=== PATIENT | male | born 2000 | race Caucasian/White ===

== ENCOUNTER 2023-01-11 15:40 | Inpatient (IN) ==
[2023-01-11] MEDS ORDERED: ZOFRAN INJ 4 MG VIAL IVP ONE (15:58)
[2023-01-11] MEDS ORDERED: NS 1,000 ML IV 1,000 ML IV ONE ×2 (15:58→18:58)
[2023-01-11] MEDS ORDERED: ZOFRAN INJ 4 MG VIAL ONE (15:59)
[2023-01-11] MEDS ORDERED: NS 1,000 ML IV 1,000 ML ONE ×3 (15:59→20:03)
[2023-01-11 16:55] LABS: SERUM ACETONE SMALL (NEGATIVE)
[2023-01-11] MEDS ORDERED: TORADOL 30 MG VIAL ONE (17:03)
[2023-01-11] MEDS ORDERED: TORADOL 30 MG VIAL IVP ONE (17:03)
[2023-01-11 17:07] LABS: ALANINE AMINOTRANSFERASE 334 Units/L (12-78); ASPARTATE AMINO TRANSFERASE 43 Units/L (15-37); BLOOD UREA NITROGEN 12 mg/dL (7-18); CALCIUM 9.3 mg/dL (8.5-10.1); CARBON DIOXIDE 18.2 mmol/L (21-32); CHLORIDE 94 mmol/L (98-107); COR NA(FOR HYPERGLY) 137 mmol/L (136-145); CREATININE 1.31 mg/dL (0.70-1.30); GLUCOSE 278 mg/dL (65-99); POTASSIUM 4.2 mmol/L (3.5-5.1); SODIUM 133 mmol/L (136-145); eGFR NON BLACK RACES > 60 (>60)
[2023-01-11 17:08] LABS: ALBUMIN 3.2 g/dL (3.4-5.0); ALKALINE PHOSPHATASE 364 Units/L (46-116); COR CA(FOR HYPOALB) 9.9 mg/dL (8.5-10.1); TOTAL PROTEIN 8.1 g/dL (6.4-8.2)
[2023-01-11 17:12] LABS: BASOPHILS % (AUTO) 0.3 % (0.2-1.0); EOSINOPHILS % (AUTO) 0.2 % (0.9-2.9); HEMATOCRIT 44.5 % (42.0-54.0); HEMOGLOBIN 15.5 g/dL (13.5-18.0); LYMPHOCYTES # (AUTO) 1.3 X10^3/uL (1.3-2.9); MEAN CORPUSCULAR HEMOGLOBIN 29.8 pg (27.0-34.0); MEAN CORPUSCULAR HGB CONC 34.8 g/dL (33.0-35.0); MEAN CORPUSCULAR VOLUME 85.7 fL (80.0-100.0); MEAN PLATELET VOLUME 8.6 fL (7.4-11.0); MONOCYTES # (AUTO) 1.1 x10^3/uL (0.3-0.8); MONOCYTES % (AUTO) 9.5 % (0.0-13.0); NEUTROPHILS # (AUTO) 9.2 x10^3/uL (2.2-4.8); PLATELET COUNT 320 X10^3/uL (150.0-450.0); WHITE BLOOD COUNT 11.7 X10^3/uL (3.6-10.0)
[2023-01-11] MEDS ORDERED: OMNIPAQUE 350 mg/mL 100 mL BTL 100 ML ONE (17:20)
[2023-01-11] MEDS ORDERED: NS 100 ML IV 100 ML ONE (17:21)
--- NOTE | 2023-01-11 17:40 | DR.N/VMALE ---
HPI Time Seen Time Seen by Provider: 01/11/23 17:18 Primary Care Physician Primary Care Physician: RADHA HPI Comment HPI Comment: According to pt he began experiencing left upper abdominal pain 4 days ago got better vomited x1 .However today patient noticed pain returned and has persisted Here to have it checked.Has vomited x2 today bringing up food eaten .Not eaten anything unuusal or different .No one at home with similar symptoms Complaints Chief Complaint Doctors Comments: left abdominal pain Chief Complaint:: PT C/O OF LUQ PAIN THAT STARTED FRIDAY AND GOT WORSE THIS MORNING WHEN HE WOKE UP AROUND 0800 ALONG WITH VOMITING THAT STARTED AROUND 10 PT STATES HE TOOK SOME TYLENOL AROUND 11 AND IT EASED THEN PAIN OFF AND THEN ABOUT 45 MIN AGO HE STARTED BACK WITH THE PAIN AND VOMITING. Self Treatment fo Chief Complaint: TYLENOL @ 10 COVID-19 Coronavirus risk:travel/contact w/high risk person: No Has patient experienced Coronavirus symptoms: No Reviewed Nurses Notes Reviewed: Yes Source History Provided: Patient Mode of Arrival Mode of Arrival: Ambulatory Timing Onset of Chief Complaint: 01/08/23 Context Onset: Spontaneous History of: Diabetes Quality Quality: Bilious and Food Particles PMH PMH Past Medical History: Yes Past Medical History: Diabetes Past Surgical History: Yes Surgical History: Tonsillectomy Family History History of Family Medical Conditions: No Social History Does patient currently use any type of tobacco product: No Have you used tobacco products in the last 12 months: No Type of Tobacco Use: None Does any household member use tobacco: No Alcohol Use: None Do you use any recreational Drugs:: No Lives With: Family Lives Where: Home Travel Risk Coronavirus risk:travel/contact w/high risk person: No Has patient experienced Coronavirus symptoms: No Infectious screening In the last 2 months have you had wt loss of >10#?: NO Have you had fever, night sweats or hemotysis?: No Have you traveled outside the country in the last 6 months?: No Isolation: Standard ROS Review of Systems Constitutional: No Symptoms Reported Eyes: No Symptoms Reported ENTM: No Symptoms Reported Respiratoy: No Symptoms Reported Cardiovascular: No Symptoms Reported Gastrointestinal/Abdominal: See HPI Genitourinary: No Symptoms Reported Neurological: No Symptoms Reported Musculoskeletal: No Symptoms Reported Integumentary: No Symptoms Reported Hematologic/Lymphatic: No Symptoms Reported Endocrine: No Symptoms Reported Psychiatric: No Symptoms Reported PE Vital Signs Vitals: Vital Signs Temperature 98.4 F Pulse Rate 126 Respiratory Rate 20 Respiratory Rate 20 Respiratory Rate 22 Blood Pressure 140/89 O2 Sat by Pulse Oximetry 97 General Limitations: No Limitations General Appearance: Alert, Anxious and In Distress Head Head Exam: Normal Inspection, Atraumatic and Normocephalic Eyes Eye exam: Normal Appearance, PERRL and EOMI ENT ENT Exam: Mucous Membranes Dry Neck Neck Exam: Normal Inspection and Full ROM Chest Chest Inspection: Normal Inspection and Symmetric Chest Wall Rise Respiratory Respiratory Exam: Normal Lung Sounds Bilat Respiratory Exam: Bilateral: Clear to Auscultation Cardiovascular Cardiovascular Exam: +S1 and +S2 Abdominal Exam Abdominal Exam: Normal Bowel Sounds, Soft and Tenderness Abdominal Tenderness: LUQ Extremities Extremities Exam: Normal Inspection and Full ROM Neurologic Neurological Exam: Alert and Oriented X3 Psychiatric Psychiatric Exam: Normal Affect Skin Skin Exam: Normal Color MDM Differential Diagnosis Differential Diagnosis: Considerations may Include:: Bowel Obstruction, Diabetes/DKA, Gastritis, Gastroenteritis and Pancreatitis COURSE Treatment Treatment: labs,fluid cT of abdomen and pelvis with contrast ,IV toradol Reevaluation 1st: Improved ROR Labs Reviewed Result Diagrams: 01/11/23 16:07 01/11/23 16:07 Laboratory: WBC 11.7 X10^3/uL (3.6-10.0) H 01/11/23 16:07 RBC 5.20 X10^6/uL (4.7-6.0) 01/11/23 16:07 Hgb 15.5 g/dL (13.5-18.0) 01/11/23 16:07 Hct 44.5 % (42.0-54.0) 01/11/23 16:07 MCV 85.7 fL (80.0-100.0) 01/11/23 16:07 MCH 29.8 pg (27.0-34.0) 01/11/23 16:07 MCHC 34.8 g/dL (33.0-35.0) 01/11/23 16:07 RDW 14.0 % (11.6-16.5) 01/11/23 16:07 Plt Count 320 X10^3/uL (150.0-450.0) 01/11/23 16:07 MPV 8.6 fL (7.4-11.0) 01/11/23 16:07 Neut % (Auto) 79.0 % (42.0-75.0) H 01/11/23 16:07 Lymph % (Auto) 11.0 % (21.0-51.0) L 01/11/23 16:07 [place] % (Auto) 9.5 % (0.0-13.0) 01/11/23 16:07 Eos % (Auto) 0.2 % (0.9-2.9) L 01/11/23 16:07 Baso % (Auto) 0.3 % (0.2-1.0) 01/11/23 16:07 Neut # (Auto) 9.2 x10^3/uL (2.2-4.8) H 01/11/23 16:07 Lymph # (Auto) 1.3 X10^3/uL (1.3-2.9) 01/11/23 16:07 [place] # (Auto) 1.1 x10^3/uL (0.3-0.8) H 01/11/23 16:07 Eos # (Auto) 0.0 x10^3/uL (0.0-0.2) 01/11/23 16:07 Baso # (Auto) 0.0 X10^3/uL (0.0-0.1) 01/11/23 16:07 Absolute Nucleated RBC 0.0 /100WBC 01/11/23 16:07 Sodium 133 mmol/L (136-145) L 01/11/23 16:07 Corrected Sodium 137 mmol/L (136-145) 01/11/23 16:07 Potassium 4.2 mmol/L (3.5-5.1) 01/11/23 16:07 Chloride 94 mmol/L (98-107) L 01/11/23 16:07 Carbon Dioxide 18.2 mmol/L (21-32) L 01/11/23 16:07 BUN 12 mg/dL (7-18) 01/11/23 16:07 Creatinine 1.31 mg/dL (0.70-1.30) H 01/11/23 16:07 Est GFR (MDRD) Af Amer > 60 (>60) 01/11/23 16:07 Est GFR (MDRD) Non-Af > 60 (>60) 01/11/23 16:07 Glucose 278 mg/dL (65-99) H 01/11/23 16:07 POC Glucose (mg/dL) 208 mg/dL (65-99) H 01/11/23 19:47 Hemoglobin A1c 12.4 % 01/11/23 16:07 Calcium 9.3 mg/dL (8.5-10.1) 01/11/23 16:07 Corrected Calcium 9.9 mg/dL (8.5-10.1) 01/11/23 16:07 Total Bilirubin 0.60 mg/dL (0.2-1.0) 01/11/23 16:07 AST 43 Units/L (15-37) H 01/11/23 16:07 ALT 334 Units/L (12-78) H 01/11/23 16:07 Alkaline Phosphatase 364 Units/L (46-116) H 01/11/23 16:07 Total Protein 8.1 g/dL (6.4-8.2) 01/11/23 16:07 Albumin 3.2 g/dL (3.4-5.0) L 01/11/23 16:07 Globulin 4.9 g/dL (2.5-4.5) H 01/11/23 16:07 Albumin/Globulin Ratio 0.7 Ratio (1.1-2.1) L 01/11/23 16:07 Lipase 2250 Units/L (73-393) H 01/11/23 16:07 Specimen Type Clean catch urine 01/11/23 18:51 Urine Color Dark yellow (YELLOW) 01/11/23 18:51 Urine Appearance Clear (CLEAR) 01/11/23 18:51 Urine pH 5.0 (5.0 - 8.0) 01/11/23 18:51 Ur Specific [place] 1.010 (1.000-1.030) 01/11/23 18:51 Urine Protein 3+ (NEGATIVE) 01/11/23 18:51 Urine Glucose (UA) 4+ (NEGATIVE) 01/11/23 18:51 Urine Ketones 4+ (NEGATIVE) 01/11/23 18:51 Urine Blood 1+ (NEGATIVE) 01/11/23 18:51 Urine Nitrite Negative (NEGATIVE) 01/11/23 18:51 Urine Bilirubin 1+ (NEGATIVE) 01/11/23 18:51 Urine Urobilinogen 1+ (NORMAL) 01/11/23 18:51 Ur Leukocyte Esterase Negative (NEGATIVE) 01/11/23 18:51 Urine RBC 0-2 /HPF (0-3) 01/11/23 18:51 Urine WBC 0-2 /HPF (0-5) 01/11/23 18:51 Ur Squamous Epith Cells Rare /HPF (NEGATIVE) 01/11/23 18:51 Urine Bacteria Trace /HPF (NEGATIVE) 01/11/23 18:51 Urine Mucus Rare /HPF (NEGATIVE) 01/11/23 18:51 Ur Culture Indicated? No/not indicated 01/11/23 18:51 Acetone, Semi-Quant Small (NEGATIVE) H 01/11/23 16:07 Opioid Opioid Risk Tool Age (Henrry box if 16-45): No History of Preadolescent Sexual Abuse: No Total: 0 Total Score Risk Category: Low Risk Copyright: Cas CANALES predicting aberrant behaviors Discharge Plan Diagnosis Discharge Problem: Acute pancreatitis, DKA, type 1, Abnormal LFTs Discharge Plan Patient Disposition: ADMITTED INPATIENT Condition: Stable Orders to Discharge Patient Discharge Orders: Transfer (Routine); Ordered 01/11/23 Ordered By: Silvino Pinto ADDITIONAL NOTES Additional Notes Additional Notes: acute pancreatitis with abnormal LFT ,serum acetone pos with blood sugar over 200.Spke with Dr Sin .agreed to admit
[2023-01-11 18:08] LABS: HEMOGLOBIN A1C 12.4 %
--- NOTE | 2023-01-11 18:08 | CT ---
HISTORYLUQ ABD PAINSSTUDYABDOMEN/PELVIS WITH CONCOMPARISONNone.TECHNIQUESerial axial images were obtained of the abdomen and pelvis from the lung bases through the pubic symphysis after the administration of oral and intravenous contrast. Dose reduction techniques were utilized.FINDINGSThe heart is not enlarged. The lung bases are clear.The liver is not enlarged. There is no intrahepatic mass. There is no intra or extra-hepatic biliary tree dilatation. There are no calcified gallstones or gallbladder wall thickening.There are peripancreatic inflammatory changes and significant edema surrounding and involving the pancreatic tail and distal body of the pancreas. The pancreas is heterogeneous and swollen involving distal and tail the pancreas. There is edema throughout the adjacent mesenteric fat. There is fluid layering within the superior left paracolic gutter.The spleen is not enlarged. There is no splenic mass. The adrenal glands are not enlarged. There is no adrenal mass.No solid or complex cystic renal mass identified. There are no renal calculi. There is no evidence of hydronephrosis or obstructive uropathy. The urinary bladder is midline.The aorta and IVC appear intact. No periaortic mass or lymphadenopathy is identified.The appendix is normal. Very minimal shotty right lower quadrant and mesenteric lymphadenopathy is seen. There is no evidence of bowel obstruction, free air or abscess. No pelvic sidewall mass identified. There are pelvic phleboliths. There is a very small umbilical hernia with only herniation of omental fat through the defect.The osseous structures are intact.IMPRESSIONAcute pancreatitis predominately involving the distal body of the pancreas and tail.Electronically signed by: Dania Hanson (Jan 11, 2023 18:06:58)
[2023-01-11 19:05] LABS: APPEARANCE,URINE CLEAR (CLEAR); PROTEIN,URINE 3+ (NEGATIVE)
[2023-01-11 19:06] LABS: BACTERIA,URINE TRACE /HPF (NEGATIVE); BILIRUBIN,URINE 1+ (NEGATIVE); BLOOD/HEMOGLOBIN,URINE 1+ (NEGATIVE); COLOR,URINE DARK YELLOW (YELLOW); GLUCOSE, URINE 4+ (NEGATIVE); KETONES,URINE 4+ (NEGATIVE); LEUKOCYTE ESTERASE ,URINE NEGATIVE (NEGATIVE); NITRITES,URINE NEGATIVE (NEGATIVE); RBC,URINE 0-2 /HPF (0-3); SQUAMOUS EPITHELIAL CELL,UR RARE /HPF (NEGATIVE); UROBILINOGEN,URINE 1+ (NORMAL)
[2023-01-11] MEDS ORDERED: MYXREDLIN 100 UNIT/100 ML BAG 100 UNIT/100 ML PLAST..BAG IV PRN (20:01)
[2023-01-11] MEDS ORDERED: MYXREDLIN 100 UNIT/100 ML BAG 100 UNIT/100 ML PLAST..BAG IV ONE (20:03)
[2023-01-11] MEDS: NS 1,000 ML IV 1,000 ML IV SCH (20:08)
[2023-01-11 21:49] LABS: ABG BASE EXCESS -6.2 mmol/L (-2.0-2.0)
[2023-01-11 21:50] LABS: ABG ALLEN TEST POS; ABG HCO3 17.6 mmol/L (22-26)
[2023-01-11 22:05] VITALS: BMI 28.0
[2023-01-11 22:29] LABS: BLOOD UREA NITROGEN 10 mg/dL (7-18); CALCIUM 8.4 mg/dL (8.5-10.1); CARBON DIOXIDE 21.9 mmol/L (21-32); CHLORIDE 100 mmol/L (98-107); COR NA(FOR HYPERGLY) 138 mmol/L (136-145); CREATININE 1.14 mg/dL (0.70-1.30); GLUCOSE 168 mg/dL (65-99); POTASSIUM 3.4 mmol/L (3.5-5.1); SODIUM 136 mmol/L (136-145); eGFR NON BLACK RACES > 60 (>60)
[2023-01-12] MEDS: NORCO 5/325 MG TAB PO PRN ×2 (01:11→20:05)
[2023-01-12 02:06] LABS: BLOOD UREA NITROGEN 9 mg/dL (7-18); CALCIUM 8.2 mg/dL (8.5-10.1); CARBON DIOXIDE 21.6 mmol/L (21-32); CHLORIDE 102 mmol/L (98-107); COR NA(FOR HYPERGLY) 138 mmol/L (136-145); GLUCOSE 119 mg/dL (65-99); POTASSIUM 3.4 mmol/L (3.5-5.1); SODIUM 138 mmol/L (136-145); eGFR NON BLACK RACES > 60 (>60)
[2023-01-12] MEDS: NS 1,000 ML IV 1,000 ML IV SCH ×4 (03:08→20:05)
[2023-01-12 05:50] LABS: ALANINE AMINOTRANSFERASE 197 Units/L (12-78); ALBUMIN 2.2 g/dL (3.4-5.0); ALKALINE PHOSPHATASE 245 Units/L (46-116); AMYLASE 169 Units/L (25-115); ASPARTATE AMINO TRANSFERASE 23 Units/L (15-37); BLOOD UREA NITROGEN 8 mg/dL (7-18); CARBON DIOXIDE 23.6 mmol/L (21-32); CHLORIDE 104 mmol/L (98-107); COR CA(FOR HYPOALB) 9.4 mg/dL (8.5-10.1); COR NA(FOR HYPERGLY) 139 mmol/L (136-145); CREATININE 0.97 mg/dL (0.70-1.30); GLUCOSE 117 mg/dL (65-99); POTASSIUM 3.5 mmol/L (3.5-5.1); SODIUM 139 mmol/L (136-145); TOTAL PROTEIN 5.9 g/dL (6.4-8.2); eGFR NON BLACK RACES > 60 (>60)
[2023-01-12 05:52] LABS: LIPASE 1516 Units/L (73-393)
[2023-01-12 05:58] LABS: BASOPHILS % (AUTO) 0.2 % (0.2-1.0); EOSINOPHILS # (AUTO) 0.1 x10^3/uL (0.0-0.2); EOSINOPHILS % (AUTO) 0.9 % (0.9-2.9); HEMATOCRIT 37.2 % (42.0-54.0); LYMPHOCYTES # (AUTO) 1.7 X10^3/uL (1.3-2.9); LYMPHOCYTES % (AUTO) 19.7 % (21.0-51.0); MEAN CORPUSCULAR HEMOGLOBIN 29.8 pg (27.0-34.0); MEAN CORPUSCULAR HGB CONC 34.5 g/dL (33.0-35.0); MEAN CORPUSCULAR VOLUME 86.4 fL (80.0-100.0); MEAN PLATELET VOLUME 8.5 fL (7.4-11.0); MONOCYTES # (AUTO) 1.2 x10^3/uL (0.3-0.8); MONOCYTES % (AUTO) 13.9 % (0.0-13.0); NEUTROPHILS # (AUTO) 5.6 x10^3/uL (2.2-4.8); NEUTROPHILS % (AUTO) 65.3 % (42.0-75.0); PLATELET COUNT 243 X10^3/uL (150.0-450.0); WHITE BLOOD COUNT 8.5 X10^3/uL (3.6-10.0)
[2023-01-12 06:04] LABS: HEMOGLOBIN 12.8 g/dL (13.5-18.0)
[2023-01-12 06:28] LABS: SERUM ACETONE SMALL (NEGATIVE)
[2023-01-12] MEDS ORDERED: CONSULT PHARMACY - POTASSIUM & MAGNESIUM XX SCH (07:00)
[2023-01-12] MEDS ORDERED: K-RIDER 10 MEQ/NS 100 ML 10 MEQ/100 ML BAG IV SCH (08:00)
[2023-01-12 10:30] LABS: BLOOD UREA NITROGEN 7 mg/dL (7-18); CALCIUM 8.2 mg/dL (8.5-10.1); CARBON DIOXIDE 24.9 mmol/L (21-32); CHLORIDE 102 mmol/L (98-107); COR NA(FOR HYPERGLY) 140 mmol/L (136-145); CREATININE 0.89 mg/dL (0.70-1.30); GLUCOSE 229 mg/dL (65-99); POTASSIUM 4.3 mmol/L (3.5-5.1); SODIUM 137 mmol/L (136-145); eGFR NON BLACK RACES > 60 (>60)
[2023-01-12] MEDS ORDERED: BASAGLAR 20 UNIT SQ ONE (11:59)
[2023-01-12] MEDS ORDERED: ZOFRAN INJ 4 MG VIAL IVP PRN (12:04)
[2023-01-12] MEDS ORDERED: ZOFRAN INJ 4 MG VIAL ONE (12:11)
[2023-01-12] MEDS: MORPHINE SULFATE INJ 2 MG INJ IVP PRN ×2 (12:22→16:51)
[2023-01-12] MEDS: NovoLIN R (or HumuLIN R) SUBCUT PRN (12:30)
[2023-01-12] MEDS ORDERED: BASAGLAR 20 UNIT SUBCUT ONE ×2 (14:00→21:00)
--- NOTE | 2023-01-12 15:59 | DR.H&P ---
H&P History & Physical for Day of: H&P Date: 01/12/23 Chief Complaint Chief Complaint: Left upper quadrant pain with nausea and vomiting. Allergies Allergies Allergy/AdvReac Type Severity Reaction Status Date / Time No Known Allergies Allergy Verified 01/11/23 21:38 History of Present Illness History of Present Illness: This is a pleasant 22-year-old white male who is a patient of Dr. Cruz. Approximately 5 days ago he developed left upper quadrant pain and he took Tylenol which helped relieve it. He developed nausea and vomiting yesterday especially after eating. The pain became worse so he came to the [facility] emergency department and they found that he had pancreatitis. His lipase 2250. The emergency department also marium a hemoglobin A1c that showed it was 12.4%. Work-up also revealed that he had a small amount acetone in the blood because of that we would have to put him in the ICU and started him on insulin drip per protocol. We kept him n.p.o. and managed his pain and started him on IV fluid. This morning he was feeling better his lipase is come down to around 1500 and he is off insulin drip now. He reports no previous history of pancreatitis however he does drink some alcohol but not all that much she reports. He does however have a positive family history for pancreatitis and his aunt and grandparent. Past Medical History Past Medical History: Diabetes (Type 1 diabetes mellitus) Past Surgical History Surgical History: Tonsillectomy Family History Family Medical History: Diabetes Mellitus, [place], Heart Failure and Hypertension Social History Does patient currently use any type of tobacco product: No Have you used tobacco products in the last 12 months: Yes (Quit 2 months ago) Type of Tobacco Use: None Does any household member use tobacco: No Alcohol Use: None Drug Use: None Medications Home Medications: Home Medications Medication Instructions Recorded Confirmed Type insulin aspart U-100 100 unit/mL 100 unit subcut DIRECTED 01/11/23 01/11/23 History (3 mL) subcutaneous pen (Novolog FlexPen U-100 Insulin aspart) insulin syringe-needle U-100 1/2 01/11/23 01/11/23 History mL 31 gauge x 15/64" (BD Veo Insulin Syringe Ultra-Fine) pen needle, diabetic 31 gauge x 01/11/23 01/11/23 History 5/16" (BD Ultra-Fine Short Pen Needle) Labs Result Diagrams: 01/12/23 05:20 01/12/23 09:50 Labs: Laboratory WBC 8.5 X10^3/uL (3.6-10.0) 01/12/23 05:20 RBC 4.30 X10^6/uL (4.7-6.0) L 01/12/23 05:20 Hgb 12.8 g/dL (13.5-18.0) L D 01/12/23 05:20 Hct 37.2 % (42.0-54.0) L 01/12/23 05:20 MCV 86.4 fL (80.0-100.0) 01/12/23 05:20 MCH 29.8 pg (27.0-34.0) 01/12/23 05:20 MCHC 34.5 g/dL (33.0-35.0) 01/12/23 05:20 RDW 14.0 % (11.6-16.5) 01/12/23 05:20 Plt Count 243 X10^3/uL (150.0-450.0) 01/12/23 05:20 MPV 8.5 fL (7.4-11.0) 01/12/23 05:20 Neut % (Auto) 65.3 % (42.0-75.0) 01/12/23 05:20 Lymph % (Auto) 19.7 % (21.0-51.0) L 01/12/23 05:20 [place] % (Auto) 13.9 % (0.0-13.0) H 01/12/23 05:20 Eos % (Auto) 0.9 % (0.9-2.9) 01/12/23 05:20 Baso % (Auto) 0.2 % (0.2-1.0) 01/12/23 05:20 Neut # (Auto) 5.6 x10^3/uL (2.2-4.8) H 01/12/23 05:20 Lymph # (Auto) 1.7 X10^3/uL (1.3-2.9) 01/12/23 05:20 [place] # (Auto) 1.2 x10^3/uL (0.3-0.8) H 01/12/23 05:20 Eos # (Auto) 0.1 x10^3/uL (0.0-0.2) 01/12/23 05:20 Baso # (Auto) 0.0 X10^3/uL (0.0-0.1) 01/12/23 05:20 Absolute Nucleated RBC 0.0 /100WBC 01/12/23 05:20 Sample Site Rr 01/11/23 21:11 ABG pH 7.390 (7.35-7.45) 01/11/23 21:11 ABG pCO2 29.0 mmHg (35.0-45.0) L 01/11/23 21:11 ABG pO2 87.0 mmHg (80.0-100.0) 01/11/23 21:11 ABG HCO3 17.6 mmol/L (22-26) L* 01/11/23 21:11 ABG O2 Saturation 97.0 % (90-100) 01/11/23 21:11 ABG Base Excess -6.2 mmol/L (-2.0-2.0) L 01/11/23 21:11 [place] Test Pos 01/11/23 21:11 A-a Gradient 26.0 mmHg 01/11/23 21:11 FiO2 21.0 01/11/23 21:11 Blood Gas Comments Pauly well sw 01/11/23 21:11 Sodium 137 mmol/L (136-145) 01/12/23 09:50 Corrected Sodium 140 mmol/L (136-145) 01/12/23 09:50 Potassium 4.3 mmol/L (3.5-5.1) 01/12/23 09:50 Chloride 102 mmol/L (98-107) 01/12/23 09:50 Carbon Dioxide 24.9 mmol/L (21-32) 01/12/23 09:50 BUN 7 mg/dL (7-18) 01/12/23 09:50 Creatinine 0.89 mg/dL (0.70-1.30) 01/12/23 09:50 Est GFR (MDRD) Af Amer > 60 (>60) 01/12/23 09:50 Est GFR (MDRD) Non-Af > 60 (>60) 01/12/23 09:50 Glucose 229 mg/dL (65-99) H 01/12/23 09:50 POC Glucose (mg/dL) 225 mg/dL (65-99) H 01/12/23 11:49 Hemoglobin A1c 12.4 % 01/11/23 16:07 Calcium 8.2 mg/dL (8.5-10.1) L 01/12/23 09:50 Corrected Calcium 9.4 mg/dL (8.5-10.1) 01/12/23 05:20 Total Bilirubin 0.50 mg/dL (0.2-1.0) 01/12/23 05:20 AST 23 Units/L (15-37) 01/12/23 05:20 ALT 197 Units/L (12-78) H 01/12/23 05:20 Alkaline Phosphatase 245 Units/L (46-116) H 01/12/23 05:20 Total Protein 5.9 g/dL (6.4-8.2) L 01/12/23 05:20 Albumin 2.2 g/dL (3.4-5.0) L 01/12/23 05:20 Globulin 3.7 g/dL (2.5-4.5) 01/12/23 05:20 Albumin/Globulin Ratio 0.6 Ratio (1.1-2.1) L 01/12/23 05:20 Amylase 169 Units/L (25-115) H 01/12/23 05:20 Lipase 1516 Units/L (73-393) H 01/12/23 05:20 Specimen Type Clean catch urine 01/11/23 18:51 Urine Color Dark yellow (YELLOW) 01/11/23 18:51 Urine Appearance Clear (CLEAR) 01/11/23 18:51 Urine pH 5.0 (5.0 - 8.0) 01/11/23 18:51 Ur Specific [place] 1.010 (1.000-1.030) 01/11/23 18:51 Urine Protein 3+ (NEGATIVE) 01/11/23 18:51 Urine Glucose (UA) 4+ (NEGATIVE) 01/11/23 18:51 Urine Ketones 4+ (NEGATIVE) 01/11/23 18:51 Urine Blood 1+ (NEGATIVE) 01/11/23 18:51 Urine Nitrite Negative (NEGATIVE) 01/11/23 18:51 Urine Bilirubin 1+ (NEGATIVE) 01/11/23 18:51 Urine Urobilinogen 1+ (NORMAL) 01/11/23 18:51 Ur Leukocyte Esterase Negative (NEGATIVE) 01/11/23 18:51 Urine RBC 0-2 /HPF (0-3) 01/11/23 18:51 Urine WBC 0-2 /HPF (0-5) 01/11/23 18:51 Ur Squamous Epith Cells Rare /HPF (NEGATIVE) 01/11/23 18:51 Urine Bacteria Trace /HPF (NEGATIVE) 01/11/23 18:51 Urine Mucus Rare /HPF (NEGATIVE) 01/11/23 18:51 Ur Culture Indicated? No/not indicated 01/11/23 18:51 Acetone, Semi-Quant Small (NEGATIVE) H 01/12/23 05:20 Review of Systems Constitutional: No Symptoms Reported Eyes: No Symptoms Reported ENT: No Symptoms Reported Respiratory: No Symptoms Reported Cardiovascular: No Symptoms Reported Gastrointestinal: Nausea, Vomiting and Abdominal Pain; denies Diarrhea, Constipation, Melena or Hematochezia Genitourinary: Frequency; denies Dysuria, Incontinence, Hematuria or Retention Musculoskeletal: No Symptoms Reported Skin: No Symptoms Reported Neurological: No Symptoms Reported Physical Exam Vital Signs: Vital Signs Pulse Rate 88 Pulse Rate 86 Pulse Rate 82 Pulse Rate 83 Pulse Rate 80 Pulse Rate 88 Pulse Rate 80 Pulse Rate 81 Respiratory Rate 17 Respiratory Rate 23 Respiratory Rate 22 Respiratory Rate 20 Respiratory Rate 20 Respiratory Rate 23 Respiratory Rate 18 Respiratory Rate 25 Respiratory Rate 17 Respiratory Rate 16 Blood Pressure 124/71 Blood Pressure 122/73 Blood Pressure 116/72 Blood Pressure 122/77 Blood Pressure 128/69 Blood Pressure 122/63 Blood Pressure 122/71 Blood Pressure 123/86 O2 Sat by Pulse Oximetry 97 O2 Sat by Pulse Oximetry 98 O2 Sat by Pulse Oximetry 97 O2 Sat by Pulse Oximetry 97 O2 Sat by Pulse Oximetry 98 O2 Sat by Pulse Oximetry 97 O2 Sat by Pulse Oximetry 100 O2 Sat by Pulse Oximetry 97 Oriented: Normal, Time, Person and Place Eyes: Normal Nose: Normal Throat: Normal Respiratory: Clear Throughout Cardiovascular: Normal Palpation: Normal Tenderness: Epigastric Skin: Normal Musculoskeletal: Normal Psychiatric: Normal Mood Description: Calm Affect: Normal Speech Pattern: Clear and Appropriate Assessment/Plan (1) Acute pancreatitis: Narrative Support Text: Amylase and lipase are improving. Status: Acute Plan: Keep patient n.p.o., pain control and IV hydration. (2) DKA, type 1: Status: Acute Plan: Patient is off insulin drip per protocol. Repeat serum acetone in the am to make sure the patient is not going back into DKA. I will also restart his Basaglar since he missed his last night's dose we will give him 20 units this morning and another 20 units tonight. After that we will start him back at his regular 42 units at bedtime. (3) Abnormal LFTs: Narrative Support Text: LFTs improved this morning. Status: Acute Plan: Monitor CMP's daily for improvement.
[2023-01-12 16:33] LABS: LIPASE > 1500 Units/L (73-393)
[2023-01-12 16:34] LABS: SERUM ACETONE SMALL (NEGATIVE)
[2023-01-13 05:12] LABS: BASOPHILS % (AUTO) 0.5 % (0.2-1.0); EOSINOPHILS # (AUTO) 0.1 x10^3/uL (0.0-0.2); EOSINOPHILS % (AUTO) 1.2 % (0.9-2.9); HEMATOCRIT 34.7 % (42.0-54.0); LYMPHOCYTES # (AUTO) 1.3 X10^3/uL (1.3-2.9); LYMPHOCYTES % (AUTO) 14.2 % (21.0-51.0); MEAN CORPUSCULAR HEMOGLOBIN 29.9 pg (27.0-34.0); MEAN CORPUSCULAR HGB CONC 34.6 g/dL (33.0-35.0); MEAN CORPUSCULAR VOLUME 86.5 fL (80.0-100.0); MEAN PLATELET VOLUME 8.8 fL (7.4-11.0); MONOCYTES # (AUTO) 1.3 x10^3/uL (0.3-0.8); MONOCYTES % (AUTO) 14.8 % (0.0-13.0); NEUTROPHILS # (AUTO) 6.2 x10^3/uL (2.2-4.8); NEUTROPHILS % (AUTO) 69.3 % (42.0-75.0); PLATELET COUNT 219 X10^3/uL (150.0-450.0); RED BLOOD COUNT 4.01 X10^6/uL (4.7-6.0); RED CELL DISTRIBUTION WIDTH 13.8 % (11.6-16.5); WHITE BLOOD COUNT 8.9 X10^3/uL (3.6-10.0)
[2023-01-13 05:19] LABS: SERUM ACETONE SMALL (NEGATIVE)
[2023-01-13] MEDS: NovoLIN R (or HumuLIN R) SUBCUT PRN ×3 (05:22→15:43)
[2023-01-13] MEDS: NS 1,000 ML IV 1,000 ML IV SCH ×3 (05:22→20:22)
[2023-01-13 05:29] LABS: ALANINE AMINOTRANSFERASE 145 Units/L (12-78); ALBUMIN 2.1 g/dL (3.4-5.0); ALKALINE PHOSPHATASE 238 Units/L (46-116); AMYLASE 128 Units/L (25-115); ASPARTATE AMINO TRANSFERASE 45 Units/L (15-37); BLOOD UREA NITROGEN 4 mg/dL (7-18); CALCIUM 8.3 mg/dL (8.5-10.1); CARBON DIOXIDE 23.1 mmol/L (21-32); CHLORIDE 102 mmol/L (98-107); COR CA(FOR HYPOALB) 9.8 mg/dL (8.5-10.1); COR NA(FOR HYPERGLY) 139 mmol/L (136-145); CREATININE 0.73 mg/dL (0.70-1.30); GLUCOSE 241 mg/dL (65-99); LIPASE 1081 Units/L (73-393); MAGNESIUM 1.6 mg/dL (2.0-2.9); POTASSIUM 4.1 mmol/L (3.5-5.1); SODIUM 136 mmol/L (136-145); eGFR NON BLACK RACES > 60 (>60)
[2023-01-13] MEDS: PROTONIX INJ 40 MG VIAL IVP SCH (18:24)
[2023-01-13] MEDS: MAGNESIUM SULFATE 1 GRAM/100 mL PREMIX 1 G/100 ML BAG IV PRN ×2 (20:22→21:30)
[2023-01-13] MEDS ORDERED: INSULIN GLARGINE SUBCUT SCH (21:00)
[2023-01-14] MEDS: NovoLIN R (or HumuLIN R) SUBCUT PRN ×3 (00:04→16:58)
[2023-01-14] MEDS: NORCO 5/325 MG TAB PO PRN (00:05)
[2023-01-14 04:58] LABS: BASOPHILS % (AUTO) 0.5 % (0.2-1.0); EOSINOPHILS # (AUTO) 0.1 x10^3/uL (0.0-0.2); EOSINOPHILS % (AUTO) 1.5 % (0.9-2.9); HEMATOCRIT 33.5 % (42.0-54.0); HEMOGLOBIN 11.6 g/dL (13.5-18.0); LYMPHOCYTES # (AUTO) 1.7 X10^3/uL (1.3-2.9); LYMPHOCYTES % (AUTO) 21.9 % (21.0-51.0); MEAN CORPUSCULAR HEMOGLOBIN 29.5 pg (27.0-34.0); MEAN CORPUSCULAR HGB CONC 34.5 g/dL (33.0-35.0); MEAN CORPUSCULAR VOLUME 85.6 fL (80.0-100.0); MEAN PLATELET VOLUME 8.6 fL (7.4-11.0); MONOCYTES % (AUTO) 13.5 % (0.0-13.0); NEUTROPHILS # (AUTO) 4.8 x10^3/uL (2.2-4.8); NEUTROPHILS % (AUTO) 62.6 % (42.0-75.0); PLATELET COUNT 250 X10^3/uL (150.0-450.0); RED BLOOD COUNT 3.91 X10^6/uL (4.7-6.0); RED CELL DISTRIBUTION WIDTH 13.6 % (11.6-16.5); WHITE BLOOD COUNT 7.6 X10^3/uL (3.6-10.0)
[2023-01-14 05:17] LABS: ALANINE AMINOTRANSFERASE 146 Units/L (12-78); ALBUMIN 1.9 g/dL (3.4-5.0); ALKALINE PHOSPHATASE 305 Units/L (46-116); ASPARTATE AMINO TRANSFERASE 107 Units/L (15-37); BLOOD UREA NITROGEN 3 mg/dL (7-18); CALCIUM 8.3 mg/dL (8.5-10.1); CARBON DIOXIDE 26.3 mmol/L (21-32); CHLORIDE 102 mmol/L (98-107); COR NA(FOR HYPERGLY) 139 mmol/L (136-145); CREATININE 0.64 mg/dL (0.70-1.30); GLUCOSE 180 mg/dL (65-99); MAGNESIUM 1.8 mg/dL (2.0-2.9); POTASSIUM 3.3 mmol/L (3.5-5.1); SODIUM 137 mmol/L (136-145); eGFR NON BLACK RACES > 60 (>60)
[2023-01-14] MEDS: NS 1,000 ML IV 1,000 ML IV SCH ×3 (05:23→12:37)
[2023-01-14] MEDS ORDERED: CONSULT PHARMACY - POTASSIUM & MAGNESIUM XX SCH (06:00)
[2023-01-14] MEDS ORDERED: K-DUR TAB 20 MEQ PO ONE (08:00)
[2023-01-14] MEDS: PROTONIX INJ 40 MG VIAL IVP SCH (08:11)
[2023-01-14] MEDS: K-DUR TAB 20 MEQ PO SCH ×2 (08:11→11:55)
[2023-01-14] MEDS: MAGNESIUM SULFATE 1 GRAM/100 mL PREMIX 1 G/100 ML BAG IV PRN (08:12)
[2023-01-14 14:32] LABS: ALANINE AMINOTRANSFERASE 149 Units/L (12-78); ALBUMIN 2.2 g/dL (3.4-5.0); ALKALINE PHOSPHATASE 346 Units/L (46-116); ASPARTATE AMINO TRANSFERASE 96 Units/L (15-37); BLOOD UREA NITROGEN 3 mg/dL (7-18); CALCIUM 8.8 mg/dL (8.5-10.1); CARBON DIOXIDE 26.4 mmol/L (21-32); CHLORIDE 101 mmol/L (98-107); COR CA(FOR HYPOALB) 10.2 mg/dL (8.5-10.1); COR NA(FOR HYPERGLY) 138 mmol/L (136-145); CREATININE 0.67 mg/dL (0.70-1.30); GLUCOSE 183 mg/dL (65-99); POTASSIUM 3.6 mmol/L (3.5-5.1); SODIUM 136 mmol/L (136-145); TOTAL PROTEIN 6.7 g/dL (6.4-8.2); eGFR NON BLACK RACES > 60 (>60)
[2023-01-14] MEDS ORDERED: MAG-OX TAB PO SCH (16:00)
[2023-01-14 17:30] VITALS: TEMP 97.8
[2023-01-14 18:06] VITALS: BP 132/85; PULSE 87; RESP 29; O2SAT 98
[2023-01-20 06:15] LABS: HEPATITIS B SURFACE ANTIGEN Negative (Negative)
== END 2023-01-14 18:30 | disposition home or self-care (01) | DRG 438 ==
LOC: ER 15:40 → ICU 20:20
PROVIDERS: ADMIT Family Medicine; ATTEND Internal Medicine
DX: R74.01 Elevation of levels of liver transaminase levels; K21.9 Gastro-esophageal reflux disease without esophagitis; Z79.4 Long term (current) use of insulin; K29.00 Acute gastritis without bleeding; K85.90 Acute pancreatitis without necrosis or infection, unspecified; E10.10 Type 1 diabetes mellitus with ketoacidosis without coma

== ENCOUNTER 2023-02-15 14:02 | Inpatient (IN) ==
--- NOTE | 2023-02-15 15:36 | DR.ABDMALE ---
HPI Time seen Time Seen by Provider: 02/15/23 15:36 PCP Primary Care Physician: Forrest HPI comment HPI Comment: Patient is 22yr old male in er with abdominal pain, nausea and vomiting times 12 hrs. Patient have type on DM and was recently discharge from hospital for pancreatitis. Patient said he is not able to hold down fluids, food or medication. Denies fever, dysuria, diarrhea or chest pain. Complaint Chief Complaint Doctors Comments: Abdominal pain, nausea and vomiting times 12 hrs. History type one DM and pancreatitis. Chief Complaint:: Nausea/Vomiting and severe abdominal pain x12 hours COVID-19 Coronavirus risk:travel/contact w/high risk person: No Has patient experienced Coronavirus symptoms: No Reviewed Nurses Notes Review: Yes Mode of arrival Mode of Arrival: Ambulatory Timing Onset of Chief Complaint: 02/15/23 PMH PMH Past Medical History: Yes Past Medical History: Diabetes Past Surgical History: No Surgical History: Tonsillectomy Family History History of Family Medical Conditions: Yes Family Medical History: Diabetes Mellitus Social History Does patient currently use any type of tobacco product: No Have you used tobacco products in the last 12 months: No Type of Tobacco Use: Cigarettes Does any household member use tobacco: No Alcohol Use: None Do you use any recreational Drugs:: No Lives With: Family Infectious screening In the last 2 months have you had wt loss of >10#?: NO Have you had fever, night sweats or hemotysis?: No Have you traveled outside the country in the last 6 months?: No Isolation: Standard ROS Review of Systems Constitutional: No Symptoms Reported; negative Fever Eyes: No Symptoms Reported ENTM: No Symptoms Reported; negative Nose Discharge or Nose Congestion Respiratoy: No Symptoms Reported; negative Moist Cough or Short of Breath Cardiovascular: No Symptoms Reported; negative Chest Pain Gastrointestinal/Abdominal: Abdominal Pain, Nausea and Vomiting Genitourinary: No Symptoms Reported; negative Dysuria Neurological: negative Headache, Weakness or Dizziness Musculoskeletal: No Symptoms Reported; negative Muscle Pain Integumentary: No Symptoms Reported; negative Rash or Juandice Hematologic/Lymphatic: No Symptoms Reported Endocrine: No Symptoms Reported; negative Increased Thirst or Increased Urine Psychiatric: No Symptoms Reported All Other Systems: Reviewed and Negative PE Vital Signs Vital Signs: Temp Pulse Resp BP Pulse Ox O2 Del Method 02/15/23 16:20 20 02/15/23 15:50 20 02/15/23 14:03 97.6 F 108 H 22 138/85 97 Room Air General Limitations: No Limitations General Appearance: Alert and In No Apparent Distress Head Head Exam: Normal Inspection Eyes Eye exam: Normal Appearance; negative Scleral Icterus or Conjunctival Injection ENT ENT Exam: Normal Exam, Normal Oropharynx, Normal External Ear Exam and TM's Normal Bilaterally Neck Neck Exam: Normal Inspection and Trachea Midline; negative Tenderness Chest Chest Inspection: Normal Inspection and Symmetric Chest Wall Rise; negative T enderness Respiratory Respiratory Exam: Normal Lung Sounds Bilat; negative Accessory Muscle Use, Chest Wall Tenderness or Respiratory Distress Respiratory Exam: Bilateral: Clear to Auscultation Cardiovascular Cardiovascular Exam: Regular Rate and Normal Rhythm; negative Systolic Murmur or Diastolic Murmur Abdominal Exam Abdominal Exam: Normal Bowel Sounds, Soft and Tenderness Abdominal Tenderness: Diffuse and Moderate Rectal Rectal Exam: Deferred Back Back Exam: Normal Inspection; negative (R) CVA Tenderness or (L) CVA Tenderness Extremeties Extremities Exam: Normal Inspection and Normal Capillary Refill Exam: Male: Deferred Neurologic Neurological Exam: Alert and Oriented X3; negative Motor Sensory Deficit Psychiatric Psychiatric Exam: Normal Affect and Normal Mood Skin Skin Exam: Intact MDM Differential Diagnosis Differential Diagnosis: Constipation, Gastritus/PUD, Gastroenteritis and Urinary tract infection COURSE Treatment Treatment: See orders done while patient was in er. Patient was given NS 1I IV bolus and some pain and nausea medication. labs and CT report discussed with patient and his parents. He was admitted to hospital for further management. Consultation Consultation Comments: Discussed patient with Dr. Anderson. he will admit patient. Education/Counseling Education/Counseling: Patient Educated On: Diagnosis and Needs for Follow Up ROR Labs Reviewed Laboratory Results Reviewed?: Yes 02/21/23 04:58 02/21/23 04:58 Laboratory: WBC 15.7 X10^3/uL (3.6-10.0) H 02/15/23 15:46 RBC 5.47 X10^6/uL (4.7-6.0) 02/15/23 15:46 Hgb 16.2 g/dL (13.5-18.0) 02/15/23 15:46 Hct 47.7 % (42.0-54.0) 02/15/23 15:46 MCV 87.1 fL (80.0-100.0) 02/15/23 15:46 MCH 29.7 pg (27.0-34.0) 02/15/23 15:46 MCHC 34.1 g/dL (33.0-35.0) 02/15/23 15:46 RDW 13.2 % (11.6-16.5) 02/15/23 15:46 Plt Count 344 X10^3/uL (150.0-450.0) 02/15/23 15:46 MPV 8.7 fL (7.4-11.0) 02/15/23 15:46 Neut % (Auto) 85.6 % (42.0-75.0) H 02/15/23 15:46 Lymph % (Auto) 6.0 % (21.0-51.0) L 02/15/23 15:46 [place] % (Auto) 7.9 % (0.0-13.0) 02/15/23 15:46 Eos % (Auto) 0.2 % (0.9-2.9) L 02/15/23 15:46 Baso % (Auto) 0.3 % (0.2-1.0) 02/15/23 15:46 Neut # (Auto) 13.5 x10^3/uL (2.2-4.8) H 02/15/23 15:46 Lymph # (Auto) 0.9 X10^3/uL (1.3-2.9) L 02/15/23 15:46 [place] # (Auto) 1.2 x10^3/uL (0.3-0.8) H 02/15/23 15:46 Eos # (Auto) 0.0 x10^3/uL (0.0-0.2) 02/15/23 15:46 Baso # (Auto) 0.0 X10^3/uL (0.0-0.1) 02/15/23 15:46 Absolute Nucleated RBC 0.0 /100WBC 02/15/23 15:46 Sodium 138 mmol/L (136-145) 02/15/23 15:46 Corrected Sodium 145 mmol/L (136-145) 02/15/23 15:46 Potassium 4.2 mmol/L (3.5-5.1) 02/15/23 15:46 Chloride 88 mmol/L (98-107) L 02/15/23 15:46 Carbon Dioxide 18.7 mmol/L (21-32) L 02/15/23 15:46 BUN 21 mg/dL (7-18) H 02/15/23 15:46 Creatinine 1.11 mg/dL (0.70-1.30) 02/15/23 15:46 Est GFR (MDRD) Af Amer > 60 (>60) 02/15/23 15:46 Est GFR (MDRD) Non-Af > 60 (>60) 02/15/23 15:46 Glucose 408 mg/dL (65-99) H 02/15/23 15:46 Calcium 9.0 mg/dL (8.5-10.1) 02/15/23 15:46 Corrected Calcium TNP 02/15/23 15:46 Total Bilirubin 0.60 mg/dL (0.2-1.0) 02/15/23 15:46 AST 28 Units/L (15-37) 02/15/23 15:46 ALT 29 Units/L (12-78) 02/15/23 15:46 Alkaline Phosphatase 180 Units/L (46-116) H 02/15/23 15:46 Total Protein 8.5 g/dL (6.4-8.2) H 02/15/23 15:46 Albumin 3.8 g/dL (3.4-5.0) 02/15/23 15:46 Globulin 4.7 g/dL (2.5-4.5) H 02/15/23 15:46 Albumin/Globulin Ratio 0.8 Ratio (1.1-2.1) L 02/15/23 15:46 Amylase 300 Units/L (25-115) H 02/15/23 15:46 Lipase 2737 Units/L (73-393) H 02/15/23 15:46 Acetone, Semi-Quant Small (NEGATIVE) H 02/15/23 15:46 XRAY XRAY Interpreted by: Radiologist (Report noted.) and Self Opioid Opioid Risk Tool Age (Henrry box if 16-45): Yes History of Preadolescent Sexual Abuse: No Total: 1 Total Score Risk Category: Low Risk Copyright: Cardozo predicting aberrant behaviors Discharge Plan Diagnosis Discharge Problem: Acute hyperglycemia Acute pancreatitis Qualifiers: Pancreatitis type: unspecified pancreatitis type Acute pancreatitis complication: no infection or necrosis Qualified Code(s): K85.90 - Acute pancreatitis without necrosis or infection, unspecified Type 1 diabetes mellitus Qualifiers: Diabetes mellitus complication status: with hyperglycemia Qualified Code(s): E 10.65 - Type 1 diabetes mellitus with hyperglycemia Discharge Plan Patient Disposition: 09 ADMITTED INPATIENT Condition: Stable
[2023-02-15] MEDS ORDERED: DEMEROL INJ IVP ONE ×2 (15:37→19:06)
[2023-02-15] MEDS ORDERED: NS 1,000 ML IV 1,000 ML IV ONE ×3 (15:37→19:08)
[2023-02-15] MEDS ORDERED: ZOFRAN INJ 4 MG VIAL IVP ONE (15:37)
[2023-02-15] MEDS ORDERED: DEMEROL INJ ONE ×2 (15:42→19:19)
[2023-02-15] MEDS ORDERED: ZOFRAN INJ 4 MG VIAL ONE (15:42)
[2023-02-15] MEDS ORDERED: NS 1,000 ML IV 1,000 ML ONE ×3 (15:43→19:19)
[2023-02-15 15:54] LABS: BASOPHILS % (AUTO) 0.3 % (0.2-1.0); EOSINOPHILS % (AUTO) 0.2 % (0.9-2.9); HEMATOCRIT 47.7 % (42.0-54.0); HEMOGLOBIN 16.2 g/dL (13.5-18.0); LYMPHOCYTES # (AUTO) 0.9 X10^3/uL (1.3-2.9); MEAN CORPUSCULAR HEMOGLOBIN 29.7 pg (27.0-34.0); MEAN CORPUSCULAR HGB CONC 34.1 g/dL (33.0-35.0); MEAN CORPUSCULAR VOLUME 87.1 fL (80.0-100.0); MEAN PLATELET VOLUME 8.7 fL (7.4-11.0); MONOCYTES # (AUTO) 1.2 x10^3/uL (0.3-0.8); MONOCYTES % (AUTO) 7.9 % (0.0-13.0); NEUTROPHILS # (AUTO) 13.5 x10^3/uL (2.2-4.8); NEUTROPHILS % (AUTO) 85.6 % (42.0-75.0); PLATELET COUNT 344 X10^3/uL (150.0-450.0); RED BLOOD COUNT 5.47 X10^6/uL (4.7-6.0); RED CELL DISTRIBUTION WIDTH 13.2 % (11.6-16.5); WHITE BLOOD COUNT 15.7 X10^3/uL (3.6-10.0)
[2023-02-15 16:07] LABS: eGFR NON BLACK RACES > 60 (>60)
[2023-02-15 16:22] LABS: ALBUMIN 3.8 g/dL (3.4-5.0); ALKALINE PHOSPHATASE 180 Units/L (46-116); AMYLASE 300 Units/L (25-115); BLOOD UREA NITROGEN 21 mg/dL (7-18); CARBON DIOXIDE 18.7 mmol/L (21-32); CHLORIDE 88 mmol/L (98-107); COR NA(FOR HYPERGLY) 145 mmol/L (136-145); CREATININE 1.11 mg/dL (0.70-1.30); GLUCOSE 408 mg/dL (65-99); POTASSIUM 4.2 mmol/L (3.5-5.1); SODIUM 138 mmol/L (136-145); TOTAL PROTEIN 8.5 g/dL (6.4-8.2)
[2023-02-15 16:36] LABS: ALANINE AMINOTRANSFERASE 29 Units/L (12-78); ASPARTATE AMINO TRANSFERASE 28 Units/L (15-37); LIPASE 2737 Units/L (73-393)
[2023-02-15 19:49] LABS: BILIRUBIN,URINE NEGATIVE (NEGATIVE); BLOOD/HEMOGLOBIN,URINE NEGATIVE (NEGATIVE); GLUCOSE, URINE 4+ (NEGATIVE); KETONES,URINE 4+ (NEGATIVE); LEUKOCYTE ESTERASE ,URINE NEGATIVE (NEGATIVE); NITRITES,URINE NEGATIVE (NEGATIVE); PROTEIN,URINE 3+ (NEGATIVE); UROBILINOGEN,URINE NORMAL (NORMAL)
[2023-02-15 19:53] LABS: APPEARANCE,URINE CLEAR (CLEAR); BACTERIA,URINE NEGATIVE /HPF (NEGATIVE); COLOR,URINE YELLOW (YELLOW); RBC,URINE NONE SEEN /HPF (0-3); SQUAMOUS EPITHELIAL CELL,UR RARE /HPF (NEGATIVE)
[2023-02-15] MEDS ORDERED: ZOFRAN INJ 4 MG VIAL IVP PRN (20:02)
[2023-02-15] MEDS: NS 1,000 ML IV 1,000 ML IV SCH (20:50)
[2023-02-15] MEDS: NovoLIN R (or HumuLIN R) SC PRN (21:03)
[2023-02-15 22:04] VITALS: BMI 26.0
[2023-02-15] MEDS: DEMEROL INJ IVP PRN (23:29)
[2023-02-15] MEDS: ZOFRAN INJ 4 MG VIAL IVP PRN (23:47)
[2023-02-16] MEDS ORDERED: DILAUDID INJ IVP ONE (02:28)
[2023-02-16] MEDS ORDERED: PHENERGAN INJ 25 MG IM PRN (02:31)
[2023-02-16] MEDS: NS 1,000 ML IV 1,000 ML IV SCH ×4 (04:00→23:06)
[2023-02-16 05:10] LABS: BASOPHILS % (AUTO) 0.2 % (0.2-1.0); HEMATOCRIT 41.7 % (42.0-54.0); LYMPHOCYTES # (AUTO) 0.7 X10^3/uL (1.3-2.9); LYMPHOCYTES % (AUTO) 5.6 % (21.0-51.0); MEAN CORPUSCULAR HEMOGLOBIN 29.5 pg (27.0-34.0); MEAN CORPUSCULAR HGB CONC 33.7 g/dL (33.0-35.0); MEAN CORPUSCULAR VOLUME 87.5 fL (80.0-100.0); MEAN PLATELET VOLUME 8.7 fL (7.4-11.0); MONOCYTES # (AUTO) 1.5 x10^3/uL (0.3-0.8); MONOCYTES % (AUTO) 12.7 % (0.0-13.0); NEUTROPHILS # (AUTO) 9.9 x10^3/uL (2.2-4.8); NEUTROPHILS % (AUTO) 81.5 % (42.0-75.0); PLATELET COUNT 296 X10^3/uL (150.0-450.0); RED BLOOD COUNT 4.76 X10^6/uL (4.7-6.0); RED CELL DISTRIBUTION WIDTH 13.7 % (11.6-16.5); WHITE BLOOD COUNT 12.2 X10^3/uL (3.6-10.0)
[2023-02-16 05:21] LABS: HEMOGLOBIN 14.1 g/dL (13.5-18.0)
[2023-02-16 05:27] LABS: ALANINE AMINOTRANSFERASE 24 Units/L (12-78); ALBUMIN 3.1 g/dL (3.4-5.0); ALKALINE PHOSPHATASE 139 Units/L (46-116); ASPARTATE AMINO TRANSFERASE 15 Units/L (15-37); BLOOD UREA NITROGEN 10 mg/dL (7-18); CALCIUM 8.1 mg/dL (8.5-10.1); CARBON DIOXIDE 23.8 mmol/L (21-32); CHLORIDE 103 mmol/L (98-107); COR CA(FOR HYPOALB) 8.8 mg/dL (8.5-10.1); COR NA(FOR HYPERGLY) 145 mmol/L (136-145); CREATININE 1.02 mg/dL (0.70-1.30); GLUCOSE 280 mg/dL (65-99); POTASSIUM 4.3 mmol/L (3.5-5.1); SODIUM 141 mmol/L (136-145); TOTAL PROTEIN 6.7 g/dL (6.4-8.2); eGFR NON BLACK RACES > 60 (>60)
[2023-02-16 05:43] LABS: AMYLASE 714 Units/L (25-115); LIPASE 5790 Units/L (73-393)
[2023-02-16] MEDS: NovoLIN R (or HumuLIN R) SC PRN ×3 (05:43→20:27)
[2023-02-16] MEDS: DEMEROL INJ IVP PRN ×3 (07:02→20:49)
[2023-02-16] MEDS: ZOFRAN INJ 4 MG VIAL IVP PRN ×3 (07:03→20:45)
[2023-02-16] MEDS ORDERED: NovoLIN N or HumuLIN N SC ONE (10:57)
[2023-02-16] MEDS: PROTONIX TAB 40 MG PO SCH (12:19)
[2023-02-16] MEDS: LANTUS SC SCH (20:26)
[2023-02-17] MEDS: NS 1,000 ML IV 1,000 ML IV SCH ×4 (01:21→18:23)
[2023-02-17 05:04] LABS: BASOPHILS % (AUTO) 0.5 % (0.2-1.0); EOSINOPHILS # (AUTO) 0.2 x10^3/uL (0.0-0.2); EOSINOPHILS % (AUTO) 2.8 % (0.9-2.9); HEMATOCRIT 35.6 % (42.0-54.0); HEMOGLOBIN 12.3 g/dL (13.5-18.0); LYMPHOCYTES # (AUTO) 1.3 X10^3/uL (1.3-2.9); LYMPHOCYTES % (AUTO) 14.6 % (21.0-51.0); MEAN CORPUSCULAR HEMOGLOBIN 29.7 pg (27.0-34.0); MEAN CORPUSCULAR HGB CONC 34.4 g/dL (33.0-35.0); MEAN CORPUSCULAR VOLUME 86.3 fL (80.0-100.0); MEAN PLATELET VOLUME 8.5 fL (7.4-11.0); MONOCYTES % (AUTO) 11.5 % (0.0-13.0); NEUTROPHILS # (AUTO) 6.4 x10^3/uL (2.2-4.8); NEUTROPHILS % (AUTO) 70.6 % (42.0-75.0); PLATELET COUNT 258 X10^3/uL (150.0-450.0); RED BLOOD COUNT 4.13 X10^6/uL (4.7-6.0); RED CELL DISTRIBUTION WIDTH 13.5 % (11.6-16.5)
[2023-02-17] MEDS: DEMEROL INJ IVP PRN ×3 (05:19→20:26)
[2023-02-17 05:21] LABS: ALANINE AMINOTRANSFERASE 16 Units/L (12-78); ALBUMIN 2.3 g/dL (3.4-5.0); ALKALINE PHOSPHATASE 122 Units/L (46-116); AMYLASE 438 Units/L (25-115); ASPARTATE AMINO TRANSFERASE 14 Units/L (15-37); BLOOD UREA NITROGEN 6 mg/dL (7-18); CALCIUM 7.8 mg/dL (8.5-10.1); CARBON DIOXIDE 23.8 mmol/L (21-32); CHLORIDE 103 mmol/L (98-107); COR CA(FOR HYPOALB) 9.2 mg/dL (8.5-10.1); COR NA(FOR HYPERGLY) 139 mmol/L (136-145); CREATININE 0.77 mg/dL (0.70-1.30); GLUCOSE 162 mg/dL (65-99); SODIUM 138 mmol/L (136-145); TOTAL PROTEIN 5.9 g/dL (6.4-8.2); eGFR NON BLACK RACES > 60 (>60)
[2023-02-17 05:30] LABS: LIPASE 2868 Units/L (73-393)
[2023-02-17] MEDS ORDERED: CONSULT PHARMACY - POTASSIUM & MAGNESIUM XX SCH (07:00)
[2023-02-17] MEDS ORDERED: K-DUR TAB 20 MEQ PO SCH (09:00)
[2023-02-17] MEDS: MAG-OX TAB PO SCH ×2 (09:17→10:48)
[2023-02-17] MEDS: PROTONIX TAB 40 MG PO SCH (09:17)
[2023-02-17] MEDS: ZOFRAN INJ 4 MG VIAL IVP PRN (11:00)
[2023-02-17] MEDS ORDERED: OMNIPAQUE 350 mg/mL 100 mL BTL 100 ML ONE (14:58)
[2023-02-17] MEDS: NovoLIN R (or HumuLIN R) SC PRN (16:03)
--- NOTE | 2023-02-17 18:11 | PCM.PROG ---
Progress Note - Progress Note for Day of Date of Exam: 02/17/23 - Subjective Subjective: PT IS 22 WM ER ADMISSION WITH DKA AND ACUTE PANCREATITIS. PT HAS BEEN NPO WITH EXCEPTION FOR ICE CHIPS. PT HAS BEEN ON IV HYDRATION AND PAIN CONTROL. PT AMYLASE AND LIPASE, LFTS TRENDING DOWN. PT CO2 IN NORMAL RANGE WITH CONTROLLED BLOOD SUGARS. PT CONTINUES WITH NAUSEA AND REQUIRING OPIOID PAIN CONTROL. PT HAS DIFFUSE LEFT UPPER ABDOMINAL AND EPIGASTRIC TENDNERNESS. CT ABDPELVIS ORDERED AND PROTONIX IV BID. - Past Medical Family Social History Past Med/Fam/Surg Hx: No changes since H&P Allergies: Allergies No Known Allergies Allergy (Verified 01/11/23 21:38) - Review of Systems ROS: No change since H&P - Vital Signs and I&O's Vital Signs: Vital Signs Temperature 97.9 F Pulse Rate 80 Pulse Rate 81 Pulse Rate 80 Pulse Rate 82 Pulse Rate 80 Pulse Rate 79 Pulse Rate 76 Pulse Rate 86 Pulse Rate 115 Pulse Rate 81 Pulse Rate 84 Pulse Rate 77 Pulse Rate 81 Pulse Rate 77 Pulse Rate 79 Pulse Rate 80 Pulse Rate 77 Pulse Rate 79 Pulse Rate 78 Pulse Rate 99 Pulse Rate 82 Pulse Rate 82 Pulse Rate 80 Pulse Rate 79 Pulse Rate 84 Pulse Rate 80 Pulse Rate 73 Pulse Rate 78 Respiratory Rate 20 Respiratory Rate 20 Respiratory Rate 20 Respiratory Rate 18 Respiratory Rate 20 Respiratory Rate 17 Respiratory Rate 16 Respiratory Rate 20 Respiratory Rate 19 Respiratory Rate 18 Respiratory Rate 23 Respiratory Rate 18 Respiratory Rate 20 Respiratory Rate 23 Respiratory Rate 20 Respiratory Rate 21 Respiratory Rate 20 Respiratory Rate 20 Respiratory Rate 17 Respiratory Rate 20 Respiratory Rate 18 Respiratory Rate 20 Respiratory Rate 24 Respiratory Rate 22 Respiratory Rate 21 Respiratory Rate 24 Respiratory Rate 21 Respiratory Rate 24 Respiratory Rate 19 Respiratory Rate 20 Blood Pressure 119/58 Blood Pressure 125/72 Blood Pressure 114/57 Blood Pressure 125/58 Blood Pressure 132/79 O2 Sat by Pulse Oximetry 99 O2 Sat by Pulse Oximetry 98 O2 Sat by Pulse Oximetry 97 O2 Sat by Pulse Oximetry 98 O2 Sat by Pulse Oximetry 98 O2 Sat by Pulse Oximetry 98 O2 Sat by Pulse Oximetry 98 O2 Sat by Pulse Oximetry 98 O2 Sat by Pulse Oximetry 97 O2 Sat by Pulse Oximetry 99 O2 Sat by Pulse Oximetry 99 O2 Sat by Pulse Oximetry 99 O2 Sat by Pulse Oximetry 99 O2 Sat by Pulse Oximetry 99 O2 Sat by Pulse Oximetry 99 O2 Sat by Pulse Oximetry 99 O2 Sat by Pulse Oximetry 100 O2 Sat by Pulse Oximetry 98 O2 Sat by Pulse Oximetry 99 O2 Sat by Pulse Oximetry 98 O2 Sat by Pulse Oximetry 98 O2 Sat by Pulse Oximetry 98 O2 Sat by Pulse Oximetry 99 O2 Sat by Pulse Oximetry 99 O2 Sat by Pulse Oximetry 100 O2 Sat by Pulse Oximetry 99 O2 Sat by Pulse Oximetry 98 Intake and Output: Intake & Output 02/15/23 02/16/23 02/17/23 02/18/23 11:59 11:59 11:59 11:59 Intake Total 2073 / 3 3700 / 3700 1333 / 1333 Output Total 350 / 350 Balance 1723 / 1723 3700 / 3700 1333 / 1333 - Physical Exam Oriented: Normal Eyes: Normal Ear: Normal Nose: Normal Throat: Normal Respiratory: Normal Cardiovascular: Tachycardia : Normal Auscultation: Bowel Sounds: Increased Tenderness: LUQ, Epigastric Skin: Decreased Turgur Musculoskeletal: Normal Psychiatric: Normal Mood Description: Calm Speech Pattern: Clear, Appropriate - Laboratory and Diagnostics Result Diagrams: 02/17/23 04:01 02/17/23 04:01 Labs: Laboratory WBC 9.0 X10^3/uL (3.6-10.0) 02/17/23 04:01 RBC 4.13 X10^6/uL (4.7-6.0) L 02/17/23 04:01 Hgb 12.3 g/dL (13.5-18.0) L 02/17/23 04:01 Hct 35.6 % (42.0-54.0) L 02/17/23 04:01 MCV 86.3 fL (80.0-100.0) 02/17/23 04:01 MCH 29.7 pg (27.0-34.0) 02/17/23 04:01 MCHC 34.4 g/dL (33.0-35.0) 02/17/23 04:01 RDW 13.5 % (11.6-16.5) 02/17/23 04:01 Plt Count 258 X10^3/uL (150.0-450.0) 02/17/23 04:01 MPV 8.5 fL (7.4-11.0) 02/17/23 04:01 Neut % (Auto) 70.6 % (42.0-75.0) 02/17/23 04:01 Lymph % (Auto) 14.6 % (21.0-51.0) L 02/17/23 04:01 [place] % (Auto) 11.5 % (0.0-13.0) 02/17/23 04:01 Eos % (Auto) 2.8 % (0.9-2.9) 02/17/23 04:01 Baso % (Auto) 0.5 % (0.2-1.0) 02/17/23 04:01 Neut # (Auto) 6.4 x10^3/uL (2.2-4.8) H 02/17/23 04:01 Lymph # (Auto) 1.3 X10^3/uL (1.3-2.9) 02/17/23 04:01 [place] # (Auto) 1.0 x10^3/uL (0.3-0.8) H 02/17/23 04:01 Eos # (Auto) 0.2 x10^3/uL (0.0-0.2) 02/17/23 04:01 Baso # (Auto) 0.0 X10^3/uL (0.0-0.1) 02/17/23 04:01 Absolute Nucleated RBC 0.0 /100WBC 02/17/23 04:01 Sodium 138 mmol/L (136-145) 02/17/23 04:01 Corrected Sodium 139 mmol/L (136-145) 02/17/23 04:01 Potassium 3.0 mmol/L (3.5-5.1) L 02/17/23 04:01 Chloride 103 mmol/L (98-107) 02/17/23 04:01 Carbon Dioxide 23.8 mmol/L (21-32) 02/17/23 04:01 BUN 6 mg/dL (7-18) L 02/17/23 04:01 Creatinine 0.77 mg/dL (0.70-1.30) 02/17/23 04:01 Est GFR (MDRD) Af Amer > 60 (>60) 02/17/23 04:01 Est GFR (MDRD) Non-Af > 60 (>60) 02/17/23 04:01 Glucose 162 mg/dL (65-99) H 02/17/23 04:01 POC Glucose (mg/dL) 195 mg/dL (65-99) H 02/17/23 15:22 Calcium 7.8 mg/dL (8.5-10.1) L 02/17/23 04:01 Corrected Calcium 9.2 mg/dL (8.5-10.1) 02/17/23 04:01 Magnesium 1.9 mg/dL (2.0-2.9) L 02/17/23 04:01 Total Bilirubin 0.40 mg/dL (0.2-1.0) 02/17/23 04:01 AST 14 Units/L (15-37) L 02/17/23 04:01 ALT 16 Units/L (12-78) 02/17/23 04:01 Alkaline Phosphatase 122 Units/L (46-116) H 02/17/23 04:01 Total Protein 5.9 g/dL (6.4-8.2) L 02/17/23 04:01 Albumin 2.3 g/dL (3.4-5.0) L 02/17/23 04:01 Globulin 3.6 g/dL (2.5-4.5) 02/17/23 04:01 Albumin/Globulin Ratio 0.6 Ratio (1.1-2.1) L 02/17/23 04:01 Amylase 438 Units/L (25-115) H 02/17/23 04:01 Lipase 2868 Units/L (73-393) H 02/17/23 04:01 Specimen Type Clean catch urine 02/15/23 19:31 Urine Color Yellow (YELLOW) 02/15/23 19: Urine Appearance Clear (CLEAR) 02/15/23 19: Urine pH 6.0 (5.0 - 8.0) 02/15/23 19: Ur Specific [place] 1.025 (1.000-1.030) 02/15/23 19:31 Urine Protein 3+ (NEGATIVE) 02/15/23 19: Urine Glucose (UA) 4+ (NEGATIVE) 02/15/23 19: Urine Ketones 4+ (NEGATIVE) 02/15/23 19: Urine Blood Negative (NEGATIVE) 02/15/23 19: Urine Nitrite Negative (NEGATIVE) 02/15/23 19: Urine Bilirubin Negative (NEGATIVE) 02/15/23 19: Urine Urobilinogen Normal (NORMAL) 02/15/23 19:31 Ur Leukocyte Esterase Negative (NEGATIVE) 02/15/23 19:31 Urine RBC None seen /HPF (0-3) 02/15/23 19:31 Urine WBC None seen /HPF (0-5) 02/15/23 19:31 Ur Squamous Epith Cells Rare /HPF (NEGATIVE) 02/15/23 19:31 Urine Bacteria Negative /HPF (NEGATIVE) 02/15/23 19:31 Ur Culture Indicated? No/not indicated 02/15/23 19:31 Acetone, Semi-Quant Small (NEGATIVE) H 02/15/23 15:46 - Plan (1) Acute pancreatitis Status: Acute Plan: IV HYDRATION. PAIN CONTROL. REPEAT AM CMP, AMYLASE LIPASE. CT ABD PELVIS WITH CONTRAST. NAUSEA CONTROL. BID IV PROTONIX. BS CONTROL, I&OS, BP CONTROL (2) DKA, type 1 Status: Acute (3) Abnormal LFTs Status: Acute
--- NOTE | 2023-02-17 19:33 | CT ---
HISTORYPANCREATITISSTUDYABDOMEN/PELVIS WITH [id number]/08/2023.TECHNIQUEMultipl e axial images of the abdomen and pelvis were obtained from the lung bases to the pubic symphysis after the administration of IV contrast. Dose reduction techniques including Automated Exposure Control (AEC) and adjustment of mA and kV were utilized.FINDINGSThe right lung base is clear. There is nonspecific opacity in the left base and a small left pleural effusion. The heart size is normal. The liver, gallbladder, spleen, adrenal glands are normal. Kidneys are normal in size without mass, stone, or hydronephrosis. There is inflammation in the pancreas and surrounding anterior para renal fat suggestive of acute pancreatitis. There is also some inflammation involving the wall of the descending duodenum. The stomach, jejunum, and ileum are normal. There is nonspecific wall thickening in the right colon especially in the area of the hepatic flexure. The appendix is not identified. There is small to moderate free fluid in the pelvis. There is nonspecific urinary bladder wall thickening. The prostate is normal. The bones are normal.IMPRESSION1. Acute pancreatitis.2. Nonspecific wall thickening of the right colon possibly related to the pancreatitis or possibly due to some form of colitis.3. Nonspecific free fluid in the pelvis.4. Urinary bladder wall thickening worrisome for cystitis.Electronically signed by: Sang Day (Feb 17, 2023 19:27:29)
[2023-02-17] MEDS: PROTONIX INJ 40 MG VIAL IVP SCH (20:27)
[2023-02-18] MEDS: NS 1,000 ML IV 1,000 ML IV SCH ×5 (01:14→18:25)
[2023-02-18] MEDS: DEMEROL INJ IVP PRN ×2 (02:01→08:25)
[2023-02-18 05:37] LABS: BASOPHILS % (AUTO) 0.6 % (0.2-1.0); EOSINOPHILS # (AUTO) 0.3 x10^3/uL (0.0-0.2); EOSINOPHILS % (AUTO) 3.7 % (0.9-2.9); HEMATOCRIT 34.6 % (42.0-54.0); HEMOGLOBIN 11.9 g/dL (13.5-18.0); LYMPHOCYTES # (AUTO) 1.8 X10^3/uL (1.3-2.9); LYMPHOCYTES % (AUTO) 23.5 % (21.0-51.0); MEAN CORPUSCULAR HEMOGLOBIN 29.8 pg (27.0-34.0); MEAN CORPUSCULAR HGB CONC 34.4 g/dL (33.0-35.0); MEAN CORPUSCULAR VOLUME 86.6 fL (80.0-100.0); MEAN PLATELET VOLUME 8.7 fL (7.4-11.0); MONOCYTES # (AUTO) 0.8 x10^3/uL (0.3-0.8); MONOCYTES % (AUTO) 11.2 % (0.0-13.0); NEUTROPHILS # (AUTO) 4.6 x10^3/uL (2.2-4.8); PLATELET COUNT 241 X10^3/uL (150.0-450.0); RED CELL DISTRIBUTION WIDTH 13.5 % (11.6-16.5); WHITE BLOOD COUNT 7.5 X10^3/uL (3.6-10.0)
[2023-02-18 05:51] LABS: ALANINE AMINOTRANSFERASE 20 Units/L (12-78); ALBUMIN 2.2 g/dL (3.4-5.0); ALKALINE PHOSPHATASE 138 Units/L (46-116); ASPARTATE AMINO TRANSFERASE 25 Units/L (15-37); BLOOD UREA NITROGEN 5 mg/dL (7-18); CALCIUM 7.8 mg/dL (8.5-10.1); CARBON DIOXIDE 21.2 mmol/L (21-32); CHLORIDE 101 mmol/L (98-107); COR CA(FOR HYPOALB) 9.2 mg/dL (8.5-10.1); COR NA(FOR HYPERGLY) 138 mmol/L (136-145); CREATININE 0.65 mg/dL (0.70-1.30); GLUCOSE 236 mg/dL (65-99); MAGNESIUM 1.8 mg/dL (2.0-2.9); POTASSIUM 3.4 mmol/L (3.5-5.1); SODIUM 135 mmol/L (136-145); TOTAL PROTEIN 5.8 g/dL (6.4-8.2); eGFR NON BLACK RACES > 60 (>60)
[2023-02-18] MEDS ORDERED: CONSULT PHARMACY - POTASSIUM & MAGNESIUM XX SCH (06:00)
[2023-02-18 08:22] LABS: AMYLASE 189 Units/L (25-115); LIPASE 1149 Units/L (73-393)
[2023-02-18] MEDS: K-RIDER 10 MEQ/NS 100 ML 10 MEQ/100 ML BAG IV SCH ×2 (08:22→10:17)
[2023-02-18] MEDS: MAGNESIUM SULFATE 1 GRAM/100 mL PREMIX 1 G/100 ML BAG IV SCH ×2 (08:23→10:18)
[2023-02-18] MEDS: PROTONIX INJ 40 MG VIAL IVP SCH ×2 (08:24→20:09)
[2023-02-18] MEDS: NovoLIN R (or HumuLIN R) SC PRN ×2 (11:15→20:14)
[2023-02-18] MEDS: RESTORIL CAP 15 MG PO PRN (20:08)
[2023-02-18] MEDS: K-DUR TAB 20 MEQ PO SCH (20:08)
[2023-02-18] MEDS ORDERED: MAG-OX TAB PO SCH (21:00)
[2023-02-19] MEDS: NS 1,000 ML IV 1,000 ML IV SCH ×3 (03:17→17:00)
[2023-02-19 05:03] LABS: BASOPHILS # (AUTO) 0.1 X10^3/uL (0.0-0.1); EOSINOPHILS # (AUTO) 0.2 x10^3/uL (0.0-0.2); EOSINOPHILS % (AUTO) 3.9 % (0.9-2.9); HEMATOCRIT 35.8 % (42.0-54.0); HEMOGLOBIN 12.4 g/dL (13.5-18.0); LYMPHOCYTES # (AUTO) 1.4 X10^3/uL (1.3-2.9); LYMPHOCYTES % (AUTO) 23.5 % (21.0-51.0); MEAN CORPUSCULAR HEMOGLOBIN 29.9 pg (27.0-34.0); MEAN CORPUSCULAR HGB CONC 34.5 g/dL (33.0-35.0); MEAN CORPUSCULAR VOLUME 86.6 fL (80.0-100.0); MEAN PLATELET VOLUME 8.3 fL (7.4-11.0); MONOCYTES # (AUTO) 0.5 x10^3/uL (0.3-0.8); MONOCYTES % (AUTO) 8.7 % (0.0-13.0); NEUTROPHILS # (AUTO) 3.8 x10^3/uL (2.2-4.8); NEUTROPHILS % (AUTO) 62.9 % (42.0-75.0); PLATELET COUNT 301 X10^3/uL (150.0-450.0); RED BLOOD COUNT 4.14 X10^6/uL (4.7-6.0); RED CELL DISTRIBUTION WIDTH 13.5 % (11.6-16.5)
[2023-02-19 05:22] LABS: ALANINE AMINOTRANSFERASE 17 Units/L (12-78); ALBUMIN 2.4 g/dL (3.4-5.0); ALKALINE PHOSPHATASE 139 Units/L (46-116); ASPARTATE AMINO TRANSFERASE 16 Units/L (15-37); BLOOD UREA NITROGEN 6 mg/dL (7-18); CALCIUM 8.2 mg/dL (8.5-10.1); CARBON DIOXIDE 17.1 mmol/L (21-32); CHLORIDE 100 mmol/L (98-107); COR CA(FOR HYPOALB) 9.5 mg/dL (8.5-10.1); COR NA(FOR HYPERGLY) 140 mmol/L (136-145); CREATININE 0.75 mg/dL (0.70-1.30); GLUCOSE 309 mg/dL (65-99); MAGNESIUM 1.7 mg/dL (2.0-2.9); POTASSIUM 3.7 mmol/L (3.5-5.1); SODIUM 135 mmol/L (136-145); TOTAL PROTEIN 6.1 g/dL (6.4-8.2); eGFR NON BLACK RACES > 60 (>60)
[2023-02-19] MEDS: NovoLIN R (or HumuLIN R) SC PRN ×3 (06:09→21:08)
[2023-02-19] MEDS: ZOFRAN INJ 4 MG VIAL IVP PRN (06:25)
[2023-02-19] MEDS ORDERED: CONSULT PHARMACY - POTASSIUM & MAGNESIUM XX SCH ×2 (07:00)
[2023-02-19 07:26] LABS: AMYLASE 120 Units/L (25-115); LIPASE 965 Units/L (73-393)
[2023-02-19] MEDS ORDERED: K-DUR TAB 20 MEQ PO ONE ×2 (09:00)
[2023-02-19] MEDS: MAG-OX TAB PO SCH ×2 (09:15→20:54)
[2023-02-19] MEDS: PROTONIX INJ 40 MG VIAL IVP SCH ×2 (09:15→20:54)
[2023-02-19] MEDS ORDERED: MAG-OX TAB PO SCH (10:00)
[2023-02-19] MEDS: CARAFATE ORAL SUSP PO SCH ×3 (11:53→20:55)
--- NOTE | 2023-02-19 18:18 | PCM.PROG ---
Progress Note - Progress Note for Day of Date of Exam: 02/19/23 - Subjective Subjective: PT IS 22 WM ER ADMISSION WITH DKA AND ACUTE PANCREATITIS. PT HAS BEEN NPO WITH EXCEPTION FOR ICE CHIPS. PT HAS BEEN ON IV HYDRATION AND PAIN CONTROL. PT HAS BEEN ON SLIDING SCALE. HIS CT OF ABD/PELVIS REVEALED FINDINGS CONSISTENT WITH PANCREATITIS. PT AMYLASE AND LIPASE HAVE TRENDED DOWN WITH IMPROVING ABDOMINAL PAIN. PT REPORTS ONE EPISODE OF NAUSEA EARLY THIS MORNING. HIS CO2 ON HIS CMP ~17. SERIAL BMPS ORDERED AND IV NS INCREASED TO 125CC/HR. WE DID RESTART PT'S LANTUS AND ADVANCED DIET SINCE PAIN AND NAUSEA IMPROVED. PLAN TO REPEAT SERUM ACETONE THIS MORNING - Past Medical Family Social History Past Med/Fam/Surg Hx: No changes since H&P Allergies: Allergies No Known Allergies Allergy (Verified 01/11/23 21:38) - Review of Systems ROS: No change since H&P - Vital Signs and I&O's Vital Signs: Vital Signs Temperature 97.7 F Temperature 98.0 F Pulse Rate 79 Pulse Rate 88 Pulse Rate 89 Pulse Rate 82 Pulse Rate 94 Pulse Rate 84 Pulse Rate 76 Respiratory Rate 24 Respiratory Rate 29 Respiratory Rate 27 Respiratory Rate 28 Respiratory Rate 35 Respiratory Rate 20 Respiratory Rate 23 Blood Pressure 137/90 Blood Pressure 115/69 Blood Pressure 121/70 Blood Pressure 113/62 Blood Pressure 109/56 Blood Pressure 112/68 Blood Pressure 145/83 O2 Sat by Pulse Oximetry 99 O2 Sat by Pulse Oximetry 100 O2 Sat by Pulse Oximetry 100 O2 Sat by Pulse Oximetry 100 O2 Sat by Pulse Oximetry 100 O2 Sat by Pulse Oximetry 98 O2 Sat by Pulse Oximetry 99 Intake and Output: Intake & Output 02/17/23 02/18/23 02/19/23 02/20/23 11:59 11:59 11:59 11:59 Intake Total 3700 / 3700 3328 / 3328 1945 Balance 3700 / 3700 3328 / 3328 1945 - Physical Exam Oriented: Normal Eyes: Normal Ear: Normal Nose: Normal Throat: Normal Respiratory: Normal Cardiovascular: Tachycardia : Normal Auscultation: Bowel Sounds: Increased Tenderness: Epigastric, Mild Skin: Decreased Turgur Musculoskeletal: Normal Psychiatric: Normal Mood Description: Calm Speech Pattern: Clear, Appropriate - Laboratory and Diagnostics Result Diagrams: 02/19/23 04:01 02/19/23 04:01 Labs: Laboratory WBC 6.0 X10^3/uL (3.6-10.0) 02/19/23 04:01 RBC 4.14 X10^6/uL (4.7-6.0) L 02/19/23 04:01 Hgb 12.4 g/dL (13.5-18.0) L 02/19/23 04:01 Hct 35.8 % (42.0-54.0) L 02/19/23 04:01 MCV 86.6 fL (80.0-100.0) 02/19/23 04:01 MCH 29.9 pg (27.0-34.0) 02/19/23 04:01 MCHC 34.5 g/dL (33.0-35.0) 02/19/23 04:01 RDW 13.5 % (11.6-16.5) 02/19/23 04:01 Plt Count 301 X10^3/uL (150.0-450.0) 02/19/23 04:01 MPV 8.3 fL (7.4-11.0) 02/19/23 04:01 Neut % (Auto) 62.9 % (42.0-75.0) 02/19/23 04:01 Lymph % (Auto) 23.5 % (21.0-51.0) 02/19/23 04:01 [place] % (Auto) 8.7 % (0.0-13.0) 02/19/23 04:01 Eos % (Auto) 3.9 % (0.9-2.9) H 02/19/23 04:01 Baso % (Auto) 1.0 % (0.2-1.0) 02/19/23 04:01 Neut # (Auto) 3.8 x10^3/uL (2.2-4.8) 02/19/23 04:01 Lymph # (Auto) 1.4 X10^3/uL (1.3-2.9) 02/19/23 04:01 [place] # (Auto) 0.5 x10^3/uL (0.3-0.8) 02/19/23 04:01 Eos # (Auto) 0.2 x10^3/uL (0.0-0.2) 02/19/23 04:01 Baso # (Auto) 0.1 X10^3/uL (0.0-0.1) 02/19/23 04:01 Absolute Nucleated RBC 0.0 /100WBC 02/19/23 04:01 Sodium 135 mmol/L (136-145) L 02/19/23 04:01 Corrected Sodium 140 mmol/L (136-145) 02/19/23 04:01 Potassium 3.7 mmol/L (3.5-5.1) 02/19/23 04:01 Chloride 100 mmol/L (98-107) 02/19/23 04:01 Carbon Dioxide 17.1 mmol/L (21-32) L 02/19/23 04:01 BUN 6 mg/dL (7-18) L 02/19/23 04:01 Creatinine 0.75 mg/dL (0.70-1.30) 02/19/23 04:01 Est GFR (MDRD) Af Amer > 60 (>60) 02/19/23 04:01 Est GFR (MDRD) Non-Af > 60 (>60) 02/19/23 04:01 Glucose 309 mg/dL (65-99) H 02/19/23 04:01 POC Glucose (mg/dL) 341 mg/dL (65-99) H 02/19/23 15:29 Calcium 8.2 mg/dL (8.5-10.1) L 02/19/23 04:01 Corrected Calcium 9.5 mg/dL (8.5-10.1) 02/19/23 04:01 Magnesium 1.7 mg/dL (2.0-2.9) L 02/19/23 04:01 Total Bilirubin 0.50 mg/dL (0.2-1.0) 02/19/23 04:01 AST 16 Units/L (15-37) 02/19/23 04:01 ALT 17 Units/L (12-78) 02/19/23 04:01 Alkaline Phosphatase 139 Units/L (46-116) H 02/19/23 04:01 Total Protein 6.1 g/dL (6.4-8.2) L 02/19/23 04:01 Albumin 2.4 g/dL (3.4-5.0) L 02/19/23 04:01 Globulin 3.7 g/dL (2.5-4.5) 02/19/23 04:01 Albumin/Globulin Ratio 0.6 Ratio (1.1-2.1) L 02/19/23 04:01 Amylase 120 Units/L (25-115) H 02/19/23 04:01 Lipase 965 Units/L (73-393) H 02/19/23 04:01 Specimen Type Clean catch urine 02/15/23 19:31 Urine Color Yellow (YELLOW) 02/15/23 19:31 Urine Appearance Clear (CLEAR) 02/15/23 19:31 Urine pH 6.0 (5.0 - 8.0) 02/15/23 19:31 Ur Specific [place] 1.025 (1.000-1.030) 02/15/23 19:31 Urine Protein 3+ (NEGATIVE) 02/15/23 19:31 Urine Glucose (UA) 4+ (NEGATIVE) 02/15/23 19:31 Urine Ketones 4+ (NEGATIVE) 02/15/23 19:31 Urine Blood Negative (NEGATIVE) 02/15/23 19:31 Urine Nitrite Negative (NEGATIVE) 02/15/23 19:31 Urine Bilirubin Negative (NEGATIVE) 02/15/23 19:31 Urine Urobilinogen Normal (NORMAL) 02/15/23 19:31 Ur Leukocyte Esterase Negative (NEGATIVE) 02/15/23 19:31 Urine RBC None seen /HPF (0-3) 02/15/23 19:31 Urine WBC None seen /HPF (0-5) 02/15/23 19:31 Ur Squamous Epith Cells Rare /HPF (NEGATIVE) 02/15/23 19:31 Urine Bacteria Negative /HPF (NEGATIVE) 02/15/23 19:31 Ur Culture Indicated? No/not indicated 02/15/23 19:31 Acetone, Semi-Quant Small (NEGATIVE) H 02/19/23 04:01 - Plan (1) Acute pancreatitis Status: Acute Plan: IV HYDRATION. PAIN CONTROL. REPEAT AM CMP, AMYLASE LIPASE. CT ABD PELVIS WITH CONTRAST. NAUSEA CONTROL. BID IV PROTONIX. BS CONTROL, I&OS, BP CONTROL (2) DKA, type 1 Status: Acute (3) Abnormal LFTs Status: Acute
[2023-02-19 18:40] LABS: BLOOD UREA NITROGEN 7 mg/dL (7-18); CALCIUM 9.2 mg/dL (8.5-10.1); CARBON DIOXIDE 15.7 mmol/L (21-32); CHLORIDE 100 mmol/L (98-107); COR NA(FOR HYPERGLY) 139 mmol/L (136-145); CREATININE 1.05 mg/dL (0.70-1.30); GLUCOSE 326 mg/dL (65-99); POTASSIUM 3.6 mmol/L (3.5-5.1); SODIUM 134 mmol/L (136-145); eGFR NON BLACK RACES > 60 (>60)
[2023-02-19] MEDS: K-DUR TAB 20 MEQ PO SCH (20:54)
[2023-02-19] MEDS: RESTORIL CAP 15 MG PO PRN (20:54)
[2023-02-19] MEDS: DEMEROL INJ IVP PRN (20:55)
[2023-02-19] MEDS: LANTUS SC SCH (21:09)
[2023-02-19 22:26] LABS: BLOOD UREA NITROGEN 7 mg/dL (7-18); CALCIUM 8.6 mg/dL (8.5-10.1); CARBON DIOXIDE 19.9 mmol/L (21-32); CHLORIDE 103 mmol/L (98-107); COR NA(FOR HYPERGLY) 139 mmol/L (136-145); CREATININE 0.95 mg/dL (0.70-1.30); GLUCOSE 208 mg/dL (65-99); SODIUM 136 mmol/L (136-145); eGFR NON BLACK RACES > 60 (>60)
[2023-02-20] MEDS: NS 1,000 ML IV 1,000 ML IV SCH (00:58)
[2023-02-20] MEDS ORDERED: ULTRAM PO PRN (03:37)
[2023-02-20 05:09] LABS: BASOPHILS % (AUTO) 0.7 % (0.2-1.0); EOSINOPHILS # (AUTO) 0.3 x10^3/uL (0.0-0.2); EOSINOPHILS % (AUTO) 4.3 % (0.9-2.9); HEMOGLOBIN 12.1 g/dL (13.5-18.0); LYMPHOCYTES # (AUTO) 1.8 X10^3/uL (1.3-2.9); LYMPHOCYTES % (AUTO) 30.1 % (21.0-51.0); MEAN CORPUSCULAR HEMOGLOBIN 29.9 pg (27.0-34.0); MEAN CORPUSCULAR HGB CONC 34.6 g/dL (33.0-35.0); MEAN CORPUSCULAR VOLUME 86.3 fL (80.0-100.0); MONOCYTES # (AUTO) 0.7 x10^3/uL (0.3-0.8); NEUTROPHILS # (AUTO) 3.2 x10^3/uL (2.2-4.8); NEUTROPHILS % (AUTO) 53.9 % (42.0-75.0); PLATELET COUNT 349 X10^3/uL (150.0-450.0); RED BLOOD COUNT 4.05 X10^6/uL (4.7-6.0); RED CELL DISTRIBUTION WIDTH 13.3 % (11.6-16.5)
[2023-02-20 05:22] LABS: AMYLASE 144 Units/L (25-115); BLOOD UREA NITROGEN 6 mg/dL (7-18); CALCIUM 8.7 mg/dL (8.5-10.1); CARBON DIOXIDE 20.5 mmol/L (21-32); CHLORIDE 100 mmol/L (98-107); COR NA(FOR HYPERGLY) 140 mmol/L (136-145); CREATININE 0.89 mg/dL (0.70-1.30); GLUCOSE 259 mg/dL (65-99); POTASSIUM 3.8 mmol/L (3.5-5.1); SODIUM 136 mmol/L (136-145); eGFR NON BLACK RACES > 60 (>60)
[2023-02-20 05:30] LABS: LIPASE 1842 Units/L (73-393)
[2023-02-20] MEDS: CARAFATE ORAL SUSP PO SCH ×4 (05:40→20:52)
[2023-02-20] MEDS: NovoLIN R (or HumuLIN R) SC PRN ×4 (05:41→14:51)
[2023-02-20] MEDS ORDERED: CONSULT PHARMACY - POTASSIUM & MAGNESIUM XX SCH (08:00)
[2023-02-20] MEDS: MAG-OX TAB PO SCH ×2 (08:16→20:52)
[2023-02-20] MEDS: NS + KCL 20 MEQ/L 1,000 ML with MAGNESIUM SULFATE 50% INJ VIAL 1 G IV SCH ×4 (08:19→18:40)
[2023-02-20] MEDS: PROTONIX INJ 40 MG VIAL IVP SCH ×2 (08:19→20:54)
[2023-02-20] MEDS ORDERED: NovoLIN R (or HumuLIN R) ONE (09:12)
[2023-02-20] MEDS ORDERED: MULTIHANCE INJ VIAL ONE (12:38)
[2023-02-20] MEDS: MILK OF MAGNESIA PO SCH (14:52)
--- NOTE | 2023-02-20 17:53 | PCM.PROG ---
Progress Note - Progress Note for Day of Date of Exam: 02/20/23 - Subjective Subjective: PT IS 22 WM ER ADMISSION WITH DKA AND ACUTE PANCREATITIS.. PT HAS BEEN ON IV HYDRATION, INSULIN THERAPY WITH BS CONTROL. PTS DIET WAS ADVANCED DUE TO IMPROVING PAIN AND NAUSEA. PT DID HAVE INCREASED AMYLASE AND LIPASE THIS MORNING AFTER ADVANCING HIS DIET. WE RESUMED HIS HOME INSULIN THERAPY. MRCP ORDERED FOR THIS MORNING. WE WILL REPEAT BMP TODAY AND AM LABS. DISCUSSED GI WORK UP WITH DR HOPKINS ON OUTPT. CASE MANAGEMENT TO SET UP APPOINTMENT. PT WAS CO SOB TODAY BUT NO CCC. MOM AT BEDSIDE REPORTS SHE HAS NOT WITNESSED ANY RESPIRATORY DISTRESS. PT DOES SEEM ANXIOUS. HIS O2 SAT ON ROOM AIR WAS 100%. WE ORDERED IS AND CXR. WE REVIEWED LABS AND DISCUSSED PLAN OF CARE WITH PT AND HIS MOM. - Past Medical Family Social History Past Med/Fam/Surg Hx: No changes since H&P Allergies: Allergies No Known Allergies Allergy (Verified 01/11/23 21:38) - Review of Systems ROS: No change since H&P - Vital Signs and I&O's Vital Signs: Vital Signs Temperature 98.0 F Temperature 97.8 F Pulse Rate 98 Pulse Rate 74 Pulse Rate 81 Pulse Rate 90 Pulse Rate 83 Pulse Rate 66 Pulse Rate 86 Respiratory Rate 31 Respiratory Rate 16 Respiratory Rate 20 Respiratory Rate 25 Respiratory Rate 16 Respiratory Rate 19 Respiratory Rate 24 Blood Pressure 143/89 Blood Pressure 138/91 Blood Pressure 127/72 Blood Pressure 139/83 O2 Sat by Pulse Oximetry 98 O2 Sat by Pulse Oximetry 99 O2 Sat by Pulse Oximetry 99 O2 Sat by Pulse Oximetry 100 O2 Sat by Pulse Oximetry 99 Intake and Output: Intake & Output 02/18/23 02/19/23 02/20/23 02/21/23 11:59 11:59 11:59 11:59 Intake Total 3328 / 3328 1945 / 1945 3377 / 3377 2853 / 2853 Balance 3328 / 3328 1945 3377 / 3377 2853 / 2853 - Physical Exam Oriented: Normal Eyes: Normal Ear: Normal Nose: Normal Throat: Normal Respiratory: Diminished (MILD TO BILATERAL BASES) Cardiovascular: Tachycardia : Normal Auscultation: Bowel Sounds: Increased Tenderness: Epigastric, Mild Skin: Decreased Turgur Musculoskeletal: Normal Psychiatric: Normal Mood Description: Calm Speech Pattern: Clear, Appropriate - Laboratory and Diagnostics Result Diagrams: 02/20/23 04:08 02/20/23 04:08 Labs: Laboratory WBC 6.0 X10^3/uL (3.6-10.0) 02/20/23 04:08 RBC 4.05 X10^6/uL (4.7-6.0) L 02/20/23 04:08 Hgb 12.1 g/dL (13.5-18.0) L 02/20/23 04:08 Hct 35.0 % (42.0-54.0) L 02/20/23 04:08 MCV 86.3 fL (80.0-100.0) 02/20/23 04:08 MCH 29.9 pg (27.0-34.0) 02/20/23 04:08 MCHC 34.6 g/dL (33.0-35.0) 02/20/23 04:08 RDW 13.3 % (11.6-16.5) 02/20/23 04:08 Plt Count 349 X10^3/uL (150.0-450.0) 02/20/23 04:08 MPV 8.0 fL (7.4-11.0) 02/20/23 04:08 Neut % (Auto) 53.9 % (42.0-75.0) 02/20/23 04:08 Lymph % (Auto) 30.1 % (21.0-51.0) 02/20/23 04:08 [place] % (Auto) 11.0 % (0.0-13.0) 02/20/23 04:08 Eos % (Auto) 4.3 % (0.9-2.9) H 02/20/23 04:08 Baso % (Auto) 0.7 % (0.2-1.0) 02/20/23 04:08 Neut # (Auto) 3.2 x10^3/uL (2.2-4.8) 02/20/23 04:08 Lymph # (Auto) 1.8 X10^3/uL (1.3-2.9) 02/20/23 04:08 [place] # (Auto) 0.7 x10^3/uL (0.3-0.8) 02/20/23 04:08 Eos # (Auto) 0.3 x10^3/uL (0.0-0.2) H 02/20/23 04:08 Baso # (Auto) 0.0 X10^3/uL (0.0-0.1) 02/20/23 04:08 Absolute Nucleated RBC 0.0 /100WBC 02/20/23 04:08 Sodium 136 mmol/L (136-145) 02/20/23 04:08 Corrected Sodium 140 mmol/L (136-145) 02/20/23 04:08 Potassium 3.8 mmol/L (3.5-5.1) 02/20/23 04:08 Chloride 100 mmol/L (98-107) 02/20/23 04:08 Carbon Dioxide 20.5 mmol/L (21-32) L 02/20/23 04:08 BUN 6 mg/dL (7-18) L 02/20/23 04:08 Creatinine 0.89 mg/dL (0.70-1.30) 02/20/23 04:08 Est GFR (MDRD) Af Amer > 60 (>60) 02/20/23 04:08 Est GFR (MDRD) Non-Af > 60 (>60) 02/20/23 04:08 Glucose 259 mg/dL (65-99) H 02/20/23 04:08 POC Glucose (mg/dL) 142 mg/dL (65-99) H 02/20/23 17:17 Calcium 8.7 mg/dL (8.5-10.1) 02/20/23 04:08 Corrected Calcium 9.5 mg/dL (8.5-10.1) 02/19/23 04:01 Magnesium 1.5 mg/dL (2.0-2.9) L 02/20/23 04:08 Total Bilirubin 0.50 mg/dL (0.2-1.0) 02/19/23 04:01 AST 16 Units/L (15-37) 02/19/23 04:01 ALT 17 Units/L (12-78) 02/19/23 04:01 Alkaline Phosphatase 139 Units/L (46-116) H 02/19/23 04:01 Total Protein 6.1 g/dL (6.4-8.2) L 02/19/23 04:01 Albumin 2.4 g/dL (3.4-5.0) L 02/19/23 04:01 Globulin 3.7 g/dL (2.5-4.5) 02/19/23 04:01 Albumin/Globulin Ratio 0.6 Ratio (1.1-2.1) L 02/19/23 04:01 Amylase 144 Units/L (25-115) H 02/20/23 04:08 Lipase 1842 Units/L (73-393) H 02/20/23 04:08 Specimen Type Clean catch urine 02/15/23 19:31 Urine Color Yellow (YELLOW) 02/15/23 19:31 Urine Appearance Clear (CLEAR) 02/15/23 19:31 Urine pH 6.0 (5.0 - 8.0) 02/15/23 19:31 Ur Specific [place] 1.025 (1.000-1.030) 02/15/23 19:31 Urine Protein 3+ (NEGATIVE) 02/15/23 19:31 Urine Glucose (UA) 4+ (NEGATIVE) 02/15/23 19:31 Urine Ketones 4+ (NEGATIVE) 02/15/23 19:31 Urine Blood Negative (NEGATIVE) 02/15/23 19:31 Urine Nitrite Negative (NEGATIVE) 02/15/23 19:31 Urine Bilirubin Negative (NEGATIVE) 02/15/23 19:31 Urine Urobilinogen Normal (NORMAL) 02/15/23 19:31 Ur Leukocyte Esterase Negative (NEGATIVE) 02/15/23 19:31 Urine RBC None seen /HPF (0-3) 02/15/23 19:31 Urine WBC None seen /HPF (0-5) 02/15/23 19:31 Ur Squamous Epith Cells Rare /HPF (NEGATIVE) 02/15/23 19:31 Urine Bacteria Negative /HPF (NEGATIVE) 02/15/23 19:31 Ur Culture Indicated? No/not indicated 02/15/23 19:31 Acetone, Semi-Quant Small (NEGATIVE) H 02/19/23 04:01 - Plan (1) Acute pancreatitis Status: Acute Plan: IV HYDRATION. PAIN CONTROL. REPEAT AM CMP, AMYLASE LIPASE. CT ABD PELVIS WITH CONTRAST. NAUSEA CONTROL. BID IV PROTONIX. BS CONTROL, I&OS, BP CONTROL (2) DKA, type 1 Status: Acute (3) Abnormal LFTs Status: Acute
[2023-02-20 18:39] LABS: BLOOD UREA NITROGEN 3 mg/dL (7-18); CALCIUM 8.8 mg/dL (8.5-10.1); CARBON DIOXIDE 22.5 mmol/L (21-32); CHLORIDE 102 mmol/L (98-107); COR NA(FOR HYPERGLY) 139 mmol/L (136-145); CREATININE 0.74 mg/dL (0.70-1.30); GLUCOSE 150 mg/dL (65-99); POTASSIUM 3.4 mmol/L (3.5-5.1); SODIUM 138 mmol/L (136-145); eGFR NON BLACK RACES > 60 (>60)
--- NOTE | 2023-02-20 19:01 | RAD ---
EXAM:CHEST, 1 VIEWHISTORY:short of breathCOMPARISON:None.TECHNIQUE:Single frontal view of the chestFINDINGS:Heart size and mediastinal contours are normal. Lungs are hypoinflated but otherwise clear as are the pleural spaces. No free air or pneumothorax. No acute bony abnormality.IMPRESSION:The lungs are hypoinflated but otherwise clear.THIS IS AN ELECTRONICALLY VERIFIED FINAL REPORT02/20/2023 6:57 PM - Electronically signed by Kwadwo Chase MD
[2023-02-20] MEDS: K-DUR TAB 20 MEQ PO SCH (20:51)
[2023-02-20] MEDS: RESTORIL CAP 15 MG PO PRN (20:51)
[2023-02-20] MEDS: LANTUS SC SCH (20:53)
[2023-02-20] MEDS ORDERED: COLACE CAP 100 MG PO SCH (21:00)
[2023-02-21] MEDS ORDERED: NS + KCL 20 MEQ/L 1,000 ML IV ONE (01:23)
[2023-02-21] MEDS: NS + KCL 20 MEQ/L 1,000 ML with MAGNESIUM SULFATE 50% INJ VIAL 1 G IV SCH ×4 (02:16→06:09)
[2023-02-21 05:46] LABS: BASOPHILS % (AUTO) 0.8 % (0.2-1.0); EOSINOPHILS # (AUTO) 0.2 x10^3/uL (0.0-0.2); EOSINOPHILS % (AUTO) 3.9 % (0.9-2.9); HEMATOCRIT 36.2 % (42.0-54.0); HEMOGLOBIN 12.5 g/dL (13.5-18.0); LYMPHOCYTES % (AUTO) 40.9 % (21.0-51.0); MEAN CORPUSCULAR HEMOGLOBIN 29.6 pg (27.0-34.0); MEAN CORPUSCULAR HGB CONC 34.6 g/dL (33.0-35.0); MEAN CORPUSCULAR VOLUME 85.6 fL (80.0-100.0); MEAN PLATELET VOLUME 7.6 fL (7.4-11.0); MONOCYTES # (AUTO) 0.6 x10^3/uL (0.3-0.8); MONOCYTES % (AUTO) 11.5 % (0.0-13.0); NEUTROPHILS # (AUTO) 2.1 x10^3/uL (2.2-4.8); NEUTROPHILS % (AUTO) 42.9 % (42.0-75.0); PLATELET COUNT 362 X10^3/uL (150.0-450.0); RED BLOOD COUNT 4.23 X10^6/uL (4.7-6.0)
[2023-02-21 05:59] LABS: ALANINE AMINOTRANSFERASE 13 Units/L (12-78); ALBUMIN 2.6 g/dL (3.4-5.0); ALKALINE PHOSPHATASE 129 Units/L (46-116); AMYLASE 192 Units/L (25-115); ASPARTATE AMINO TRANSFERASE 11 Units/L (15-37); BLOOD UREA NITROGEN 3 mg/dL (7-18); CALCIUM 8.5 mg/dL (8.5-10.1); CARBON DIOXIDE 23.8 mmol/L (21-32); CHLORIDE 103 mmol/L (98-107); COR CA(FOR HYPOALB) 9.6 mg/dL (8.5-10.1); COR NA(FOR HYPERGLY) 140 mmol/L (136-145); CREATININE 0.69 mg/dL (0.70-1.30); GLUCOSE 195 mg/dL (65-99); POTASSIUM 3.8 mmol/L (3.5-5.1); SODIUM 138 mmol/L (136-145); TOTAL PROTEIN 6.1 g/dL (6.4-8.2); eGFR NON BLACK RACES > 60 (>60)
[2023-02-21 06:07] LABS: LIPASE 2310 Units/L (73-393)
[2023-02-21] MEDS: CARAFATE ORAL SUSP PO SCH (06:09)
[2023-02-21] MEDS: NovoLIN R (or HumuLIN R) SC PRN (06:10)
[2023-02-21 07:23] VITALS: O2SAT 99
[2023-02-21 07:31] VITALS: TEMP 97.7
--- NOTE | 2023-02-21 08:40 | MRI ---
HISTORYabd painSTUDYMRI ABDOMEN W/WO CONTRASTCOMPARISONCT abdomen pelvis from 02/17/2023TECHNIQUEMultiplanar multisequence MRI of the abdomen with and without contrast with MRCP sequences were obtained per protocol. Amount of contrast not recorded at the time of this dictation.FINDINGSLimitations: Lack of diffusion weighted sequences. Lack of a true arterial phase of postcontrast. Mild motion artifact.The liver appears normal in signal and morphology. No suspicious liver lesion identified. No attic steatosis.The spleen appears normal in signal and morphology measures up to 10.3 cm craniocaudal image 25 series 601.Gallbladder appears normal without cholelithiasis, wall thickening, or pericholecystic edema.Normal caliber common duct measuring 2 mm. No pancreatic duct dilatation or evidence of pancreatic divisum.There is a mildly edematous appearance of the pancreatic tail with mild surrounding fluid image 20 series 1001.The adrenal glands appear benign.No renal suspicious mass or hydronephrosis.Normal caliber abdominal aorta. The portal vein is patent. There are trace bilateral pleural effusions.IMPRESSIONAcute uncomplicated pancreatitis of the pancreatic tail. Normal caliber common duct without choledocholithiasis identified.Trace pleural effusions.Electronically signed by: Dilan Herrera (Feb 21, 2023 08:39:03)
[2023-02-21] MEDS ORDERED: CONSULT PHARMACY - POTASSIUM & MAGNESIUM XX SCH (09:00)
[2023-02-21] MEDS: PROTONIX INJ 40 MG VIAL IVP SCH (09:08)
[2023-02-21] MEDS: MILK OF MAGNESIA PO SCH (09:09)
[2023-02-21 10:58] VITALS: BP 142/80; PULSE 73; RESP 24
[2023-02-21] MEDS: MAG-OX TAB PO SCH ×2 (10:58→10:59)
[2023-02-21] MEDS ORDERED: MAG-OX TAB PO SCH (21:00)
== END 2023-02-21 10:55 | disposition home or self-care (01) | DRG 438 ==
LOC: ER 14:02 → ICU 19:13
PROVIDERS: ADMIT Obstetrics & Gynecology Obstetrics; ATTEND Internal Medicine